=== PATIENT | female | born 1990 | race African-American/Black ===

== ENCOUNTER 2019-08-30 11:24 | Inpatient (IN) | payer OTHER ==
--- NOTE | 2019-08-30 11:58 | Event Note ---
ED Screening Note Date of service: 08/30/19 Time: 11:56 ED Screening Note: 29 y o female at 35 weeks gestation sent by [facility] for elevated BP with headache This initial assessment/diagnostic orders/clinical plan/treatment(s) is/are subject to change based on patients health status, clinical progression and re- assessment by fellow clinical providers in the ED. Further treatment and workup at subsequent clinical providers discretion. Patient/guardian urged not to elope from the ED as their condition may be serious if not clinically assessed and managed. Initial orders include: cbc,bmp,ua
[2019-08-30] MEDS ORDERED: hydrALAZINE 20 MG/1 ML INJ IV ONE (12:16)
[2019-08-30] MEDS ORDERED: MAGNESIUM SULFATE 40GM/1000ML 40 GM/1,000 ML BAG IV ONE ×2 (12:16→15:00)
--- NOTE | 2019-08-30 12:17 | Emergency Department Report ---
ED General Adult HPI - General Chief complaint: High BP Stated complaint: 35WKS /HBP Time Seen by Provider: 08/30/19 12:06 Source: patient, family, RN notes reviewed Mode of arrival: Ambulatory Limitations: Language Barrier - History of Present Illness Initial comments: The patient requested that her sister translate for her. The patient is a 29-year-old female, G1, P0, approximately 35 weeks gestation, sent by [facility] for evaluation of new onset hypertension. The patient complained of mild right-sided headache, present intermittently over the past day or so, not described as sudden or thunderclap in nature. The patient does not indicate that the patient is maximal in intensity. She does not indicate that it is the most intense headache of her life. No exacerbating or relieving factors that she is aware of. She has new onset lower extremity swelling, which she and her sister stated is new for her. There is no complete of chest pain, abdominal pain, shortness of breath. There are no urinary symptoms. As far as the patient and her sister no, no history of hypertension in the past. -: Gradual Location: head, left, right, lower extremity Consistency: other Improves with: other Worsens with: other - Related Data Allergies Allergy/AdvReac Type Severity Reaction Status Date / Time No Known Allergies Allergy Unverified 08/30/19 12:00 ED Review of Systems ROS: Stated complaint: 35WKS /HBP Other details as noted in HPI Constitutional: denies: fever Eyes: denies: eye discharge ENT: denies: epistaxis Respiratory: denies: wheezing Cardiovascular: denies: syncope Gastrointestinal: abdominal pain Genitourinary: denies: dysuria Musculoskeletal: other (new-onset bilateral lower extremity swelling) Skin: denies: lesions Neurological: headache Hematological/Lymphatic: denies: easy bleeding ED Past Medical Hx - Past Medical History Previous Medical History?: No - Surgical History Past Surgical History?: No - Social History Smoking Status: Never Smoker Substance Use Type: None ED Physical Exam - General Limitations: Language Barrier General appearance: alert, in no apparent distress - Head Head exam: Present: atraumatic, normocephalic - Eye Eye exam: Present: normal appearance, PERRL, EOMI, other (visual acuity intact to finger counting and color perception at a close distance). Absent: nystagmus - ENT ENT exam: Present: normal exam, normal orophraynx, mucous membranes moist, normal external ear exam - Neck Neck exam: Present: normal inspection, full ROM. Absent: tenderness, meningism us - Respiratory Respiratory exam: Present: normal lung sounds bilaterally. Absent: respiratory distress - Cardiovascular Cardiovascular Exam: Present: regular rate, normal rhythm, normal heart sounds. Absent: bradycardia, tachycardia, irregular rhythm, systolic murmur, diastolic murmur, rubs, gallop - GI/Abdominal GI/Abdominal exam: Present: soft, other (uterus is consistent with dates, with no significant tenderness). Absent: distended, tenderness, guarding, rebound, rigid, pulsatile mass - Extremities Exam Extremities exam: Present: normal inspection, full ROM, pedal edema, other (2+ pulses noted in the bilateral upper and lower extremities. There is no palpable cord. negative Homans sign. Muscular compartments are soft. The pelvis is stable.). Absent: calf tenderness - Back Exam Back exam: Present: normal inspection. Absent: tenderness, CVA tenderness (R), CVA tenderness (L), paraspinal tenderness, vertebral tenderness - Neurological Exam Neurological exam: Present: alert, normal gait, other (there is no facial droop. The tongue is midline. Extraocular movements are intact bilaterally. There is 5 out of 5 strength in the bilateral upper and lower extremities.) - Psychiatric Psychiatric exam: Present: normal affect, normal mood - Skin Skin exam: Present: warm, dry, intact, normal color. Absent: rash ED Course Vital Signs 08/30/19 08/30/19 08/30/19 11:33 12:00 12:46 Temperature 98.7 F Pulse Rate 94 H 90 Respiratory 18 20 Rate Blood Pressure 167/93 144/103 Blood Pressure 140/100 [Left] O2 Sat by Pulse 98 98 Oximetry 08/30/19 08/30/19 12:54 12:55 Temperature Pulse Rate 90 Respiratory 15 Rate Blood Pressure 144/103 Blood Pressure [Left] O2 Sat by Pulse Oximetry - Reevaluation(s) Reevaluation #1: 08/30/19 12:30 Differential diagnosis, including but not limited to: Preeclampsia, new onset hypertension, third trimester Assessment and plan: 29-year-old female presenting with hypertension, lower extremity edema, no visual complaints, mild headache. She is afebrile with reassuring vital signs with the exception of hypertension/elevated blood pressure. Objective edema noted on her bilateral lower extremities. Her neurologic examination is nonfocal with a GCS of 15. We have recommended IV hydralazine, magnesium sulfate infusion, and admission to labor and delivery for presumed preeclampsia. Discussed this with the patient and family who verbalized understanding and whom are amenable to this plan of care. CLINICAL SUPPORT NURSE on- call for the patient's primary group has been paged, we are waiting for them to call back. 08/30/19 12:33 Reevaluation #2: 08/30/19 12:38 Discussed with obstetrics hollow tile partition erector, Dr. Henriquez who accepts ED Medical Decision Making - Lab Data Result diagrams: 08/30/19 12:15 08/30/19 12:15 Vital Signs 08/30/19 08/30/19 11:33 12:00 Temperature 98.7 F Pulse Rate 94 H Respiratory 18 Rate Blood Pressure 167/93 Blood Pressure 140/100 [Left] O2 Sat by Pulse 98 Oximetry Laboratory Last Values WBC 9.1 K/mm3 (4.5-11.0) 08/30/19 12:15 RBC 4.47 M/mm3 (3.65-5.03) 08/30/19 12:15 Hgb 13.1 gm/dl (10.1-14.3) 08/30/19 12:15 Hct 38.6 % (30.3-42.9) 08/30/19 12:15 MCV 86 fl (79-97) 08/30/19 12:15 MCH 29 pg (28-32) 08/30/19 12:15 MCHC 34 % (30-34) 08/30/19 12:15 RDW 15.1 % (13.2-15.2) 08/30/19 12:15 Plt Count 164 K/mm3 (140-440) 08/30/19 12:15 Lymph % (Auto) 17.5 % (13.4-35.0) 08/30/19 12:15 [place] % (Auto) 8.1 % (0.0-7.3) H 08/30/19 12:15 Eos % (Auto) 1.3 % (0.0-4.3) 08/30/19 12:15 Baso % (Auto) 0.3 % (0.0-1.8) 08/30/19 12:15 Lymph # 1.6 K/mm3 (1.2-5.4) 08/30/19 12:15 [place] # 0.7 K/mm3 (0.0-0.8) 08/30/19 12:15 Eos # 0.1 K/mm3 (0.0-0.4) 08/30/19 12:15 Baso # 0.0 K/mm3 (0.0-0.1) 08/30/19 12:15 Seg Neutrophils % 72.8 % (40.0-70.0) H 08/30/19 12:15 Seg Neutrophils # 6.7 K/mm3 (1.8-7.7) 08/30/19 12:15 Vital Signs 08/30/19 08/30/19 08/30/19 11:33 12:00 12:46 Temperature 98.7 F Pulse Rate 94 H 90 Respiratory 18 20 Rate Blood Pressure 167/93 144/103 Blood Pressure 140/100 [Left] O2 Sat by Pulse 98 98 Oximetry 08/30/19 08/30/19 12:54 12:55 Temperature Pulse Rate 90 Respiratory 15 Rate Blood Pressure 144/103 Blood Pressure [Left] O2 Sat by Pulse Oximetry Lab Results 08/30/19 08/30/19 08/30/19 Range/Units 12:15 12:15 12:15 WBC 9.1 (4.5-11.0) K/mm3 RBC 4.47 (3.65-5.03) M/mm3 Hgb 13.1 (10.1-14.3) gm/dl Hct 38.6 (30.3-42.9) % MCV 86 (79-97) fl MCH 29 (28-32) pg MCHC 34 (30-34) % RDW 15.1 (13.2-15.2) % Plt Count 164 (140-440) K/mm3 Lymph % (Auto) 17.5 (13.4-35.0) % [place] % (Auto) 8.1 H (0.0-7.3) % Eos % (Auto) 1.3 (0.0-4.3) % Baso % (Auto) 0.3 (0.0-1.8) % Lymph # 1.6 (1.2-5.4) K/mm3 [place] # 0.7 (0.0-0.8) K/mm3 Eos # 0.1 (0.0-0.4) K/mm3 Baso # 0.0 (0.0-0.1) K/mm3 Seg Neutrophils % 72.8 H (40.0-70.0) % Seg Neutrophils # 6.7 (1.8-7.7) K/mm3 Sodium 136 L (137-145) mmol/L Potassium 3.9 (3.6-5.0) mmol/L Chloride 105.1 (98-107) mmol/L Carbon Dioxide 19 L (22-30) mmol/L Anion Gap 16 mmol/L BUN 7 (7-17) mg/dL Creatinine 0.3 L (0.7-1.2) mg/dL Estimated GFR > 60 ml/min BUN/Creatinine Ratio 23 % Glucose 73 (65-100) mg/dL Calcium 9.0 (8.4-10.2) mg/dL Magnesium 1.70 (1.7-2.3) mg/dL Total Bilirubin 0.30 (0.1-1.2) mg/dL AST 17 (5-40) units/L ALT 10 (7-56) units/L Alkaline Phosphatase 155 H (35-129) units/L Total Creatine Kinase 48 (30-135) units/L Total Protein 6.7 (6.3-8.2) g/dL Albumin 3.4 L (3.9-5) g/dL Albumin/Globulin Ratio 1.0 % Urine Color (Yellow) Urine Turbidity (Clear) Urine pH (5.0-7.0) Ur Specific [place] (1.003-1.030) Urine Protein (Negative) mg/dL Urine Glucose (UA) (Negative) mg/dL Urine Ketones (Negative) mg/dL Urine Blood (Negative) Urine Nitrite (Negative) Urine Bilirubin (Negative) Urine Urobilinogen (<2.0) mg/dL Ur Leukocyte Esterase (Negative) Urine WBC (Auto) (0.0-6.0) /HPF Urine RBC (Auto) (0.0-6.0) /HPF U Epithel Cells (Auto) (0-13.0) /HPF Urine Bacteria (Auto) (Negative) /HPF 08/30/19 Range/Units 12:24 WBC (4.5-11.0) K/mm3 RBC (3.65-5.03) M/mm3 Hgb (10.1-14.3) gm/dl Hct (30.3-42.9) % MCV (79-97) fl MCH (28-32) pg MCHC (30-34) % RDW (13.2-15.2) % Plt Count (140-440) K/mm3 Lymph % (Auto) (13.4-35.0) % [place] % (Auto) (0.0-7.3) % Eos % (Auto) (0.0-4.3) % Baso % (Auto) (0.0-1.8) % Lymph # (1.2-5.4) K/mm3 [place] # (0.0-0.8) K/mm3 Eos # (0.0-0.4) K/mm3 Baso # (0.0-0.1) K/mm3 Seg Neutrophils % (40.0-70.0) % Seg Neutrophils # (1.8-7.7) K/mm3 Sodium (137-145) mmol/L Potassium (3.6-5.0) mmol/L Chloride (98-107) mmol/L Carbon Dioxide (22-30) mmol/L Anion Gap mmol/L BUN (7-17) mg/dL Creatinine (0.7-1.2) mg/dL Estimated GFR ml/min BUN/Creatinine Ratio % Glucose (65-100) mg/dL Calcium (8.4-10.2) mg/dL Magnesium (1.7-2.3) mg/dL Total Bilirubin (0.1-1.2) mg/dL AST (5-40) units/L ALT (7-56) units/L Alkaline Phosphatase (35-129) units/L Total Creatine Kinase (30-135) units/L Total Protein (6.3-8.2) g/dL Albumin (3.9-5) g/dL Albumin/Globulin Ratio % Urine Color Yellow (Yellow) Urine Turbidity Slightly-cloudy (Clear) Urine pH 7.0 (5.0-7.0) Ur Specific [place] 1.008 (1.003-1.030) Urine Protein <15 mg/dl (Negative) mg/dL Urine Glucose (UA) Neg (Negative) mg/dL Urine Ketones Neg (Negative) mg/dL Urine Blood Neg (Negative) Urine Nitrite Neg (Negative) Urine Bilirubin Neg (Negative) Urine Urobilinogen < 2.0 (<2.0) mg/dL Ur Leukocyte Esterase Lg (Negative) Urine WBC (Auto) 11.0 H (0.0-6.0) /HPF Urine RBC (Auto) 2.0 (0.0-6.0) /HPF U Epithel Cells (Auto) 15.0 H (0-13.0) /HPF Urine Bacteria (Auto) 2+ (Negative) /HPF - EKG Data -: EKG Interpreted by Me EKG shows normal: sinus rhythm Rate: normal - EKG Data When compared to previous EKG there are: previous EKG unavailable 08/30/19 12:58 The EKG has motion artifact. There is a sinus rhythm, 98 bpm, QTC is within normal limits, there is motion artifact, there is no endorsement of chest pain, the EKG is abnormal, it is not consistent with ST elevation myocardial infarction. Critical Care Time: Yes Critical care time in (mins) excluding proc time.: 35 Critical care attestation.: If time is entered above; I have spent that time in minutes in the direct care of this critically ill patient, excluding procedure time. ED Disposition Clinical Impression: Lower extremity edema, Elevated blood pressure reading, Disposition: DC-[id number] OP ADMIT IP TO THIS HOSP Is pt being admited?: Yes Condition: Good
[2019-08-30 12:31] LABS: Basophils % (Auto) 0.3 % (0.0-1.8); Eosinophils # (Auto) 0.1 K/mm3 (0.0-0.4); Eosinophils % (Auto) 1.3 % (0.0-4.3); Hematocrit 38.6 % (30.3-42.9); Hemoglobin 13.1 gm/dl (10.1-14.3); Lymphocytes # (Auto) 1.6 K/mm3 (1.2-5.4); Lymphocytes % (Auto) 17.5 % (13.4-35.0); Mean Corpuscular HGB Conc 34 % (30-34); Mean Corpuscular Volume 86 fl (79-97); Monocytes # (Auto) 0.7 K/mm3 (0.0-0.8); Monocytes % (Auto) 8.1 % (0.0-7.3); Platelet Count 164 K/mm3 (140-440); Red Blood Count 4.47 M/mm3 (3.65-5.03); Red Cell Distribution Width 15.1 % (13.2-15.2)
[2019-08-30 12:48] LABS: Bacteria,Urine 2+ /HPF (Negative); Bilirubin,Urine NEG (Negative); Blood,Urine NEG (Negative); Color,Urine Yellow (Yellow); Protein,Urine <15 mg/dL mg/dL (Negative); Urobilinogen,Urine < 2.0 mg/dL (<2.0)
[2019-08-30 12:54] LABS: Alanine Aminotransferase 10 units/L (7-56); Albumin 3.4 g/dL (3.9-5); BUN/Creatinine Ratio 23; Blood Urea Nitrogen 7 mg/dL (7-17); Hemolysis Index 2
[2019-08-30] MEDS ORDERED: LACTATED RINGERS 1,000 ML ONE (14:07)
[2019-08-30] MEDS ORDERED: LIDOCAINE (2%) 20 MG/1 ML VIAL 20 ML MDV INFILTRATI ONE (14:11)
[2019-08-30] MEDS ORDERED: DINOPROSTONE 10 MG VAG SUPP VG ONE (14:11)
[2019-08-30] MEDS ORDERED: ePHEDrine SULFATE 50 MG/1 ML INJ IV PRN (14:11)
[2019-08-30] MEDS ORDERED: MINERAL OIL 30 ML ORAL LIQD PO PRN (14:11)
[2019-08-30] MEDS ORDERED: NALOXONE 0.4 MG/1 ML INJ IV PRN (14:11)
[2019-08-30] MEDS ORDERED: ONDANSETRON 4 MG/2 ML INJ IV PRN (14:11)
[2019-08-30] MEDS ORDERED: TERBUTALINE 1 MG/1 ML INJ IVP PRN (14:11)
[2019-08-30] MEDS ORDERED: TERBUTALINE 1 MG/1 ML INJ SUB-Q PRN (14:11)
--- NOTE | 2019-08-30 14:46 | History and Physical Report ---
History of Present Illness Date of examination: 08/30/19 Date of admission: 08/30/19 12:38 Chief complaint: Patient sent from office for elevated blood pressure and VEGA. Patient mistakenly went to the ER instead of the [facility]. PIH labs were drawn in the ER and Magnesium Sulfate was started. Then patient was transferred to L&D. History of present illness: Early Entry to care, course complicated by Abnormal Pap (LSIL/+HR HPV). Third trimester complicated by elevated Blood Pressures and PIH. 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 Family/Genetic History: diabetes (mother) Social history: no significant social history, - Obstetrical History Expected Date of Delivery: 09/16/19 Actual Gestation: 37 Week(s) 4 Day(s) : 1 Medications and Allergies Allergies Allergy/AdvReac Type Severity Reaction Status Date / Time No Known Allergies Allergy Unverified 08/30/19 12:00 Active Meds: Active Medications Butorphanol Tartrate (Stadol) 2 mg IV Q2H PRN PRN Reason: Pain , Severe (7-10) Ephedrine Sulfate (Ephedrine Sulfate) 10 mg IV Q2M PRN PRN Reason: Hypotension Oxytocin/Sodium Chloride (Pitocin/Ns 20 Unit/1000ml Drip) 20 units in 1,000 mls @ 125 mls/hr IV DIRECT LUISA Lactated Ringer's (Lactated Ringers) 1,000 mls @ 125 mls/hr IV DIRECT LUISA Magnesium Sulfate (Magnesium Sulfate 40gm/1000ml) 40 gm in 1,000 mls @ 50 mls/hr IV ONCE ONE Stop: 08/31/19 10:59 Mineral Oil (Mineral Oil) 30 ml PO QHS PRN PRN Reason: Constipation Naloxone HCl (Naloxone) 0.1 mg IV Q2MIN PRN PRN Reason: Res Rate </= 8 or 02 SAT < 92% Ondansetron HCl (Zofran) 4 mg IV Q8H PRN PRN Reason: Nausea And Vomiting Terbutaline Sulfate (Brethine) 0.25 mg SUB-Q ONCE PRN PRN Reason: Hyperstimulation/Hypertonicity Terbutaline Sulfate (Brethine) 0.25 mg IVP ONCE PRN PRN Reason: Hyperstimulation/Hypertonicity Review of Systems All systems: negative Constitutional: other (Headache) - Vital Signs Vital signs: Vital Signs Temp Pulse Resp BP Pulse Ox 98.7 F 94 H 18 167/93 98 08/30/19 11:33 08/30/19 11:33 08/30/19 11:33 08/30/19 11:33 08/30/19 11:33 Temp Pulse Resp BP Pulse Ox 98.5 F 104 H 16 133/87 98 08/30/19 14:00 08/30/19 14:28 08/30/19 14:00 08/30/19 14:28 08/30/19 13:00 - Physical Exam Breasts: Positive: normal Cardiovascular: Regular rate Lungs: Positive: Clear to auscultation, Normal air movement Abdomen: Positive: normal appearance, soft, normal bowel sounds Genitourinary (Female): Positive: normal external genitalia, normal perenium Vagina: Positive: normal moisture Uterus: Positive: enlarged - Obstetrical FHR: category 1 Uterine Contraction Monitor Mode: External Cervical Dilatation: 0 Cervical Effacement Percentage: 10 station: -4 Uterine Contraction Pattern: Irregular Uterine Tone Measurement Phase: Resting Uterine Contraction Intensity: Mild Results Result Diagrams: 08/30/19 12:15 08/30/19 12:15 Abnormal lab results 08/30/19 08/30/19 08/30/19 Range/Units 12:15 12:15 12:24 [place] % (Auto) 8.1 H (0.0-7.3) % Seg Neutrophils % 72.8 H (40.0-70.0) % Sodium 136 L (137-145) mmol/L Carbon Dioxide 19 L (22-30) mmol/L Creatinine 0.3 L (0.7-1.2) mg/dL Alkaline Phosphatase 155 H (35-129) units/L Albumin 3.4 L (3.9-5) g/dL Urine WBC (Auto) 11.0 H (0.0-6.0) /HPF U Epithel Cells (Auto) 15.0 H (0-13.0) /HPF All other labs normal. Assessment and Plan A: IUP @ 37 4/7 Weeks Category I Tracing Preeclampsia Headaches GBS Negative P: Admit to L&D per Routine Orders Continue MagSO4 @ 2g/hourly Magnesium Precautions Cervidil Induction [place] for HAs
[2019-08-30] MEDS ORDERED: OXYTOCIN 20 UNIT/1000ML DRIP 20 UNITS/1,000 ML BAG IV SCH (15:00)
[2019-08-30] MEDS ORDERED: ZOLPIDEM 5 MG TAB PO PRN (15:07)
[2019-08-30] MEDS: HYDROcodone/ACETAMINOPHEN 5-325 MG TAB PO PRN (18:54)
[2019-08-31] MEDS ORDERED: OXYTOCIN DRIP 30,000 MILLIUNITS/500 ML BAG IV ONE (08:21)
[2019-08-31] MEDS ORDERED: ACETAMINOPHEN 325 MG TAB ONE (09:52)
[2019-08-31] MEDS ORDERED: ACETAMINOPHEN 325 MG TAB PO PRN (09:55)
[2019-08-31] MEDS: BUTORPHANOL 2 MG/1 ML INJ IV PRN (11:03)
--- NOTE | 2019-08-31 11:05 | Progress Note ---
Assessment and Plan A: IUP @ 37 5/7 Weeks Category I Tracing Preeclampsia Headaches GBS Negative P: Continue MagSO4 @ 2g/hourly Magnesium Precautions Cook's Cervical Ripening Balloon Placed Low Dose Pitocin IV Pain Control Subjective - Subjective Date of service: 08/31/19 Interval history: Early Entry to care, course complicated by Abnormal Pap (LSIL/+HR HPV). Third trimester complicated by elevated Blood Pressures and PIH. Patient reports: contractions, other (slight right sided temporal VEGA) Objective - Vital Signs Vital Signs: Vital Signs - 12hr 08/30/19 08/30/19 08/30/19 23:05 23:10 23:15 Temperature Pulse Rate 101 H 91 H 94 H Blood Pressure O2 Sat by Pulse 96 98 98 Oximetry 08/30/19 08/30/19 08/30/19 23:20 23:25 23:30 Temperature Pulse Rate 96 H 91 H 92 H Blood Pressure O2 Sat by Pulse 98 98 98 Oximetry 08/30/19 08/30/19 08/30/19 23:35 23:40 23:45 Temperature Pulse Rate 100 H 91 H 89 Blood Pressure O2 Sat by Pulse 98 97 97 Oximetry 08/30/19 08/30/19 08/30/19 23:50 23:51 23:55 Temperature Pulse Rate 88 85 92 H Blood Pressure 129/79 O2 Sat by Pulse 97 97 Oximetry 08/31/19 08/31/19 08/31/19 00:00 00:05 00:10 Temperature Pulse Rate 89 88 89 Blood Pressure O2 Sat by Pulse 97 97 97 Oximetry 08/31/19 08/31/19 08/31/19 00:15 00:20 00:25 Temperature Pulse Rate 90 86 92 H Blood Pressure O2 Sat by Pulse 96 97 96 Oximetry 08/31/19 08/31/19 08/31/19 00:30 00:35 00:40 Temperature Pulse Rate 102 H 91 H 93 H Blood Pressure O2 Sat by Pulse 98 97 96 Oximetry 08/31/19 08/31/19 08/31/19 00:45 00:50 00:55 Temperature Pulse Rate 100 H 92 H 88 Blood Pressure 131/84 O2 Sat by Pulse 97 98 97 Oximetry 08/31/19 08/31/19 08/31/19 01:00 01:05 01:10 Temperature Pulse Rate 92 H 88 92 H Blood Pressure O2 Sat by Pulse 97 96 97 Oximetry 08/31/19 08/31/19 08/31/19 01:15 01:20 01:25 Temperature Pulse Rate 87 96 H 95 H Blood Pressure O2 Sat by Pulse 97 97 98 Oximetry 08/31/19 08/31/19 08/31/19 01:30 01:35 01:40 Temperature Pulse Rate 94 H 90 92 H Blood Pressure O2 Sat by Pulse 98 98 99 Oximetry 08/31/19 08/31/19 08/31/19 01:45 01:50 01:51 Temperature Pulse Rate 96 H 92 H 89 Blood Pressure 126/80 O2 Sat by Pulse 99 98 Oximetry 08/31/19 08/31/19 08/31/19 01:55 02:00 02:05 Temperature Pulse Rate 98 H 94 H 95 H Blood Pressure O2 Sat by Pulse 97 98 98 Oximetry 08/31/19 08/31/19 08/31/19 02:10 02:15 02:20 Temperature Pulse Rate 95 H 92 H 96 H Blood Pressure O2 Sat by Pulse 98 98 97 Oximetry 08/31/19 08/31/19 08/31/19 02:25 02:30 02:35 Temperature Pulse Rate 99 H 100 H 100 H Blood Pressure O2 Sat by Pulse 97 96 97 Oximetry 08/31/19 08/31/19 08/31/19 02:40 02:45 02:50 Temperature Pulse Rate 95 H 97 H 96 H Blood Pressure O2 Sat by Pulse 98 98 97 Oximetry 08/31/19 08/31/19 08/31/19 02:51 02:55 03:00 Temperature Pulse Rate 94 H 102 H 98 H Blood Pressure 130/82 O2 Sat by Pulse 97 97 Oximetry 08/31/19 08/31/19 08/31/19 03:05 03:10 03:15 Temperature Pulse Rate 108 H 94 H 90 Blood Pressure O2 Sat by Pulse 98 98 97 Oximetry 08/31/19 08/31/19 08/31/19 03:20 03:25 03:30 Temperature Pulse Rate 91 H 94 H 98 H Blood Pressure O2 Sat by Pulse 98 97 97 Oximetry 08/31/19 08/31/19 08/31/19 03:35 03:40 03:45 Temperature Pulse Rate 91 H 94 H 103 H Blood Pressure O2 Sat by Pulse 98 98 99 Oximetry 08/31/19 08/31/19 08/31/19 03:50 03:55 04:00 Temperature Pulse Rate 96 H 97 H 92 H Blood Pressure 132/85 O2 Sat by Pulse 99 98 98 Oximetry 08/31/19 08/31/19 08/31/19 04:05 04:10 04:15 Temperature Pulse Rate 93 H 91 H 97 H Blood Pressure O2 Sat by Pulse 99 98 99 Oximetry 08/31/19 08/31/19 08/31/19 04:20 04:25 04:30 Temperature Pulse Rate 92 H 92 H 94 H Blood Pressure O2 Sat by Pulse 98 98 97 Oximetry 08/31/19 08/31/19 08/31/19 04:35 04:40 04:45 Temperature Pulse Rate 95 H 93 H 89 Blood Pressure O2 Sat by Pulse 97 98 98 Oximetry 08/31/19 08/31/19 08/31/19 04:50 04:55 05:00 Temperature Pulse Rate 97 H 95 H 97 H Blood Pressure 121/81 O2 Sat by Pulse 98 97 97 Oximetry 08/31/19 08/31/19 08/31/19 05:05 05:10 05:15 Temperature Pulse Rate 94 H 103 H 95 H Blood Pressure O2 Sat by Pulse 97 97 97 Oximetry 08/31/19 08/31/19 08/31/19 05:20 05:25 05:30 Temperature Pulse Rate 101 H 93 H 98 H Blood Pressure O2 Sat by Pulse 98 98 97 Oximetry 08/31/19 08/31/19 08/31/19 05:35 05:40 05:45 Temperature Pulse Rate 99 H 107 H 93 H Blood Pressure O2 Sat by Pulse 98 98 98 Oximetry 08/31/19 08/31/19 08/31/19 05:50 05:54 05:55 Temperature Pulse Rate 93 H 100 H 94 H Blood Pressure 136/81 O2 Sat by Pulse 100 98 Oximetry 08/31/19 08/31/19 08/31/19 06:00 06:05 06:10 Temperature Pulse Rate 98 H 96 H 99 H Blood Pressure O2 Sat by Pulse 98 98 98 Oximetry 08/31/19 08/31/19 08/31/19 06:15 06:20 06:25 Temperature Pulse Rate 99 H 101 H 104 H Blood Pressure O2 Sat by Pulse 98 98 97 Oximetry 08/31/19 08/31/19 08/31/19 06:30 06:35 06:40 Temperature Pulse Rate 101 H 105 H 92 H Blood Pressure O2 Sat by Pulse 98 97 97 Oximetry 08/31/19 08/31/19 08/31/19 06:45 06:50 06:55 Temperature Pulse Rate 95 H 96 H 90 Blood Pressure 133/81 O2 Sat by Pulse 98 98 98 Oximetry 08/31/19 08/31/19 08/31/19 07:00 07:05 07:10 Temperature Pulse Rate 98 H 105 H 95 H Blood Pressure O2 Sat by Pulse 98 99 98 Oximetry 08/31/19 08/31/19 08/31/19 07:15 07:19 07:20 Temperature Pulse Rate 104 H 106 H 95 H Blood Pressure 140/91 O2 Sat by Pulse 97 98 Oximetry 08/31/19 08/31/19 08/31/19 07:25 07:30 07:35 Temperature Pulse Rate 96 H 92 H 88 Blood Pressure O2 Sat by Pulse 98 98 98 Oximetry 08/31/19 08/31/19 08/31/19 07:40 07:45 07:50 Temperature Pulse Rate 88 95 H 91 H Blood Pressure 136/81 O2 Sat by Pulse 99 99 98 Oximetry 08/31/19 08/31/19 08/31/19 07:55 08:00 08:05 Temperature Pulse Rate 96 H 104 H 94 H Blood Pressure O2 Sat by Pulse 99 99 98 Oximetry 08/31/19 08/31/19 08/31/19 08:10 08:15 08:20 Temperature Pulse Rate 98 H 98 H 97 H Blood Pressure O2 Sat by Pulse 98 97 98 Oximetry 08/31/19 08/31/19 08/31/19 08:25 08:30 08:34 Temperature 98.3 F Pulse Rate 105 H 99 H 100 H Blood Pressure 134/86 O2 Sat by Pulse 98 99 Oximetry 08/31/19 08/31/19 08/31/19 08:35 08:40 08:45 Temperature Pulse Rate 104 H 93 H 98 H Blood Pressure O2 Sat by Pulse 99 98 98 Oximetry 08/31/19 08/31/19 08/31/19 08:50 08:55 09:00 Temperature Pulse Rate 106 H 96 H 98 H Blood Pressure O2 Sat by Pulse 98 98 98 Oximetry 08/31/19 08/31/19 08/31/19 09:04 09:05 09:10 Temperature Pulse Rate 96 H 97 H 100 H Blood Pressure 135/86 O2 Sat by Pulse 98 98 Oximetry 08/31/19 08/31/19 08/31/19 09:15 09:20 09:25 Temperature Pulse Rate 99 H 98 H 105 H Blood Pressure O2 Sat by Pulse 98 98 98 Oximetry 08/31/19 08/31/19 08/31/19 09:30 09:34 09:35 Temperature Pulse Rate 93 H 87 90 Blood Pressure 134/80 O2 Sat by Pulse 98 98 Oximetry 08/31/19 08/31/19 08/31/19 09:40 09:45 09:50 Temperature Pulse Rate 94 H 92 H 94 H Blood Pressure O2 Sat by Pulse 98 98 98 Oximetry 08/31/19 08/31/19 08/31/19 09:55 10:00 10:05 Temperature Pulse Rate 95 H 94 H 92 H Blood Pressure 142/81 O2 Sat by Pulse 98 98 98 Oximetry 08/31/19 08/31/19 08/31/19 10:10 10:15 10:20 Temperature Pulse Rate 91 H 93 H 86 Blood Pressure O2 Sat by Pulse 98 98 98 Oximetry 08/31/19 08/31/19 08/31/19 10:25 10:30 10:34 Temperature Pulse Rate 93 H 88 83 Blood Pressure 128/76 O2 Sat by Pulse 98 99 Oximetry 08/31/19 08/31/19 08/31/19 10:35 10:40 10:45 Temperature Pulse Rate 94 H 90 94 H Blood Pressure O2 Sat by Pulse 98 98 98 Oximetry 08/31/19 08/31/19 08/31/19 10:50 10:55 11:00 Temperature Pulse Rate 103 H 104 H 90 Blood Pressure O2 Sat by Pulse 99 99 98 Oximetry - Exam Breasts: normal Cardiovascular: Regular rate Lungs: Clear to auscultation, Normal air movement Abdomen: Present: normal appearance, soft, normal bowel sounds Uterus: Present: normal, firm, fundal height above umbilicus FHR: category 1 Uterine Contraction Monitor Mode: External Cervical Dilatation: 1 (Vtx; Intact) Cervical Effacement Percentage: 40 station: -3 Uterine Contraction Pattern: Regular Uterine Tone Measurement Phase: Resting Uterine Contraction Intensity: Mild Extremities: normal - Labs Labs: Abnormal Labs 08/30/19 08/30/19 08/30/19 12:15 12:15 12:24 [place] % (Auto) 8.1 H Seg Neutrophils % 72.8 H Sodium 136 L Carbon Dioxide 19 L Creatinine 0.3 L Magnesium Alkaline Phosphatase 155 H Albumin 3.4 L Urine WBC (Auto) 11.0 H U Epithel Cells (Auto) 15.0 H 08/30/19 08/31/19 21:50 05:49 [place] % (Auto) Seg Neutrophils % Sodium Carbon Dioxide Creatinine Magnesium 4.90 H 5.60 H Alkaline Phosphatase Albumin Urine WBC (Auto) U Epithel Cells (Auto) Laboratory Results - last 24 hr 08/30/19 08/30/19 08/30/19 12:15 12:15 12:15 WBC 9.1 RBC 4.47 Hgb 13.1 Hct 38.6 MCV 86 MCH 29 MCHC 34 RDW 15.1 Plt Count 164 Lymph % (Auto) 17.5 [place]one % (Auto) 8.1 H Eos % (Auto) 1.3 Baso % (Auto) 0.3 Lymph # 1.6 Mccone # 0.7 Eos # 0.1 Baso # 0.0 Seg Neutrophils % 72.8 H Seg Neutrophils # 6.7 Sodium 136 L Potassium 3.9 Chloride 105.1 Carbon Dioxide 19 L Anion Gap 16 BUN 7 Creatinine 0.3 L Estimated GFR > 60 BUN/Creatinine Ratio 23 Glucose 73 Calcium 9.0 Magnesium 1.70 Total Bilirubin 0.30 AST 17 ALT 10 Alkaline Phosphatase 155 H Total Creatine Kinase 48 Total Protein 6.7 Albumin 3.4 L Albumin/Globulin Ratio 1.0 Urine Color Urine Turbidity Urine pH Ur Specific [place] Urine Protein Urine Glucose (UA) Urine Ketones Urine Blood Urine Nitrite Urine Bilirubin Urine Urobilinogen Ur Leukocyte Esterase Urine WBC (Auto) Urine RBC (Auto) U Epithel Cells (Auto) Urine Bacteria (Auto) Blood Type Antibody Screen 08/30/19 08/30/19 08/30/19 12:24 15:30 21:50 WBC RBC Hgb Hct MCV MCH MCHC RDW Plt Count Lymph % (Auto) Mccone % (Auto) Eos % (Auto) Baso % (Auto) Lymph # M[place]one # Eos # Baso # Seg Neutrophils % Seg Neutrophils # Sodium Potassium Chloride Carbon Dioxide Anion Gap BUN Creatinine Estimated GFR BUN/Creatinine Ratio Glucose Calcium Magnesium 4.90 H Total Bilirubin AST ALT Alkaline Phosphatase Total Creatine Kinase Total Protein Albumin Albumin/Globulin Ratio Urine Color Yellow Urine Turbidity Slightly-cloudy Urine pH 7.0 Ur Specific [place] 1.008 Urine Protein <15 mg/dl Urine Glucose (UA) Neg Urine Ketones Neg Urine Blood Neg Urine Nitrite Neg Urine Bilirubin Neg Urine Urobilinogen < 2.0 Ur Leukocyte Esterase Lg Urine WBC (Auto) 11.0 H Urine RBC (Auto) 2.0 U Epithel Cells (Auto) 15.0 H Urine Bacteria (Auto) 2+ Blood Type O POSITIVE Antibody Screen Negative 08/31/19 05:49 WBC RBC Hgb Hct MCV MCH MCHC RDW Plt Count Lymph % (Auto) M[place]one % (Auto) Eos % (Auto) Baso % (Auto) Lymph # Mcc[place] # Eos # Baso # Seg Neutrophils % Seg Neutrophils # Sodium Potassium Chloride Carbon Dioxide Anion Gap BUN Creatinine Estimated GFR BUN/Creatinine Ratio Glucose Calcium Magnesium 5.60 H Total Bilirubin AST ALT Alkaline Phosphatase Total Creatine Kinase Total Protein Albumin Albumin/Globulin Ratio Urine Color Urine Turbidity Urine pH Ur Specific [place] Urine Protein Urine Glucose (UA) Urine Ketones Urine Blood Urine Nitrite Urine Bilirubin Urine Urobilinogen Ur Leukocyte Esterase Urine WBC (Auto) Urine RBC (Auto) U Epithel Cells (Auto) Urine Bacteria (Auto) Blood Type Antibody Screen
[2019-08-31] MEDS: OXYTOCIN DRIP 30 UNITS/500 ML BAG IV SCH ×2 (11:35→12:51)
--- NOTE | 2019-08-31 20:29 | Progress Note ---
Assessment and Plan A: Term IUP Preeclampsia: MgSo4 2gram/hr (last Mag level 6.10) Headache Category 1 tracing Cooks catheter removed AROM 17:47 Lg clear fluid Pitocin 2MU P: Routine labor orders Continue MgS04 2 grams hr MgS04 precautions Pitocin Augmentation May have IV pain med/epidural PRN Anticipate Subjective - Subjective Date of service: 08/31/19 Principal diagnosis: IOL at term, Preeclampsia Interval history: See H&P Patient reports: new complaints (blurry vision), movement normal, contractions, other ( right sided temporal VEGA. Rates pain 5/10 pain scale) Objective - Vital Signs Vital Signs: Vital Signs - 12hr 08/31/19 08/31/19 08/31/19 08:30 08:34 08:35 Temperature 98.3 F Pulse Rate 99 H 100 H 104 H Respiratory Rate Blood Pressure 134/86 O2 Sat by Pulse 99 99 Oximetry 08/31/19 08/31/19 08/31/19 08:40 08:45 08:50 Temperature Pulse Rate 93 H 98 H 106 H Respiratory Rate Blood Pressure O2 Sat by Pulse 98 98 98 Oximetry 08/31/19 08/31/19 08/31/19 08:55 09:00 09:04 Temperature Pulse Rate 96 H 98 H 96 H Respiratory Rate Blood Pressure 135/86 O2 Sat by Pulse 98 98 Oximetry 08/31/19 08/31/19 08/31/19 09:05 09:10 09:15 Temperature Pulse Rate 97 H 100 H 99 H Respiratory Rate Blood Pressure O2 Sat by Pulse 98 98 98 Oximetry 08/31/19 08/31/19 08/31/19 09:20 09:25 09:30 Temperature Pulse Rate 98 H 105 H 93 H Respiratory Rate Blood Pressure O2 Sat by Pulse 98 98 98 Oximetry 08/31/19 08/31/19 08/31/19 09:34 09:35 09:40 Temperature Pulse Rate 87 90 94 H Respiratory Rate Blood Pressure 134/80 O2 Sat by Pulse 98 98 Oximetry 08/31/19 08/31/19 08/31/19 09:45 09:50 09:55 Temperature Pulse Rate 92 H 94 H 95 H Respiratory Rate Blood Pressure O2 Sat by Pulse 98 98 98 Oximetry 08/31/19 08/31/19 08/31/19 10:00 10:05 10:10 Temperature Pulse Rate 94 H 92 H 91 H Respiratory Rate Blood Pressure 142/81 O2 Sat by Pulse 98 98 98 Oximetry 08/31/19 08/31/19 08/31/19 10:15 10:20 10:25 Temperature Pulse Rate 93 H 86 93 H Respiratory Rate Blood Pressure O2 Sat by Pulse 98 98 98 Oximetry 08/31/19 08/31/19 08/31/19 10:30 10:34 10:35 Temperature Pulse Rate 88 83 94 H Respiratory Rate Blood Pressure 128/76 O2 Sat by Pulse 99 98 Oximetry 08/31/19 08/31/19 08/31/19 10:40 10:45 10:50 Temperature Pulse Rate 90 94 H 103 H Respiratory Rate Blood Pressure O2 Sat by Pulse 98 98 99 Oximetry 08/31/19 08/31/19 08/31/19 10:55 11:00 11:05 Temperature Pulse Rate 104 H 90 89 Respiratory Rate Blood Pressure 141/85 O2 Sat by Pulse 99 98 99 Oximetry 08/31/19 08/31/19 08/31/19 11:10 11:11 11:15 Temperature Pulse Rate 86 90 88 Respiratory Rate Blood Pressure O2 Sat by Pulse 96 94 96 Oximetry 08/31/19 08/31/19 08/31/19 11:20 11:25 11:30 Temperature Pulse Rate 87 90 87 Respiratory Rate Blood Pressure O2 Sat by Pulse 96 95 96 Oximetry 08/31/19 08/31/19 08/31/19 11:32 11:35 11:40 Temperature Pulse Rate 93 H 87 86 Respiratory Rate Blood Pressure 120/68 O2 Sat by Pulse 94 96 96 Oximetry 08/31/19 08/31/19 08/31/19 11:45 11:50 11:55 Temperature Pulse Rate 88 92 H 89 Respiratory Rate Blood Pressure O2 Sat by Pulse 99 99 99 Oximetry 08/31/19 08/31/19 08/31/19 12:00 12:04 12:05 Temperature Pulse Rate 95 H 88 86 Respiratory Rate Blood Pressure 129/78 O2 Sat by Pulse 99 100 Oximetry 08/31/19 08/31/19 08/31/19 12:10 12:15 12:20 Temperature Pulse Rate 96 H 96 H 93 H Respiratory Rate Blood Pressure O2 Sat by Pulse 100 99 100 Oximetry 08/31/19 08/31/19 08/31/19 12:25 12:30 12:35 Temperature Pulse Rate 89 89 89 Respiratory Rate Blood Pressure 131/74 O2 Sat by Pulse 100 100 100 Oximetry 08/31/19 08/31/19 08/31/19 12:40 12:45 12:50 Temperature Pulse Rate 95 H 90 89 Respiratory Rate Blood Pressure O2 Sat by Pulse 100 100 100 Oximetry 08/31/19 08/31/19 08/31/19 12:55 13:00 13:04 Temperature Pulse Rate 92 H 85 85 Respiratory Rate Blood Pressure 116/61 O2 Sat by Pulse 100 100 Oximetry 08/31/19 08/31/19 08/31/19 13:05 13:10 13:15 Temperature Pulse Rate 86 91 H 88 Respiratory Rate Blood Pressure O2 Sat by Pulse 100 100 100 Oximetry 08/31/19 08/31/19 08/31/19 13:20 13:25 13:30 Temperature Pulse Rate 87 97 H 95 H Respiratory Rate Blood Pressure O2 Sat by Pulse 100 100 100 Oximetry 08/31/19 08/31/19 08/31/19 13:34 13:35 13:40 Temperature 98.5 F Pulse Rate 87 89 96 H Respiratory Rate Blood Pressure 129/75 O2 Sat by Pulse 100 100 Oximetry 08/31/19 08/31/19 08/31/19 13:45 13:50 13:55 Temperature Pulse Rate 94 H 90 100 H Respiratory Rate Blood Pressure O2 Sat by Pulse 100 100 99 Oximetry 08/31/19 08/31/19 08/31/19 14:00 14:04 14:05 Temperature Pulse Rate 87 88 89 Respiratory Rate Blood Pressure 110/66 O2 Sat by Pulse 100 100 Oximetry 08/31/19 08/31/19 08/31/19 14:10 14:15 14:20 Temperature Pulse Rate 89 84 87 Respiratory Rate Blood Pressure O2 Sat by Pulse 100 100 100 Oximetry 08/31/19 08/31/19 08/31/19 14:25 14:30 14:34 Temperature Pulse Rate 82 90 85 Respiratory Rate Blood Pressure 129/78 O2 Sat by Pulse 100 99 Oximetry 08/31/19 08/31/19 08/31/19 14:35 14:40 14:45 Temperature Pulse Rate 93 H 85 85 Respiratory Rate Blood Pressure O2 Sat by Pulse 99 99 99 Oximetry 08/31/19 08/31/19 08/31/19 14:50 14:55 15:00 Temperature Pulse Rate 98 H 91 H 90 Respiratory Rate Blood Pressure O2 Sat by Pulse 99 99 99 Oximetry 08/31/19 08/31/19 08/31/19 15:04 15:05 15:10 Temperature Pulse Rate 84 85 87 Respiratory Rate Blood Pressure 124/64 O2 Sat by Pulse 99 100 Oximetry 08/31/19 08/31/19 08/31/19 15:15 15:20 15:25 Temperature Pulse Rate 87 89 86 Respiratory Rate Blood Pressure O2 Sat by Pulse 99 100 99 Oximetry 08/31/19 08/31/19 08/31/19 15:30 15:34 15:35 Temperature Pulse Rate 84 83 96 H Respiratory Rate Blood Pressure 125/70 O2 Sat by Pulse 98 98 Oximetry 08/31/19 08/31/19 08/31/19 15:40 15:45 15:50 Temperature Pulse Rate 93 H 86 86 Respiratory Rate Blood Pressure O2 Sat by Pulse 98 100 100 Oximetry 08/31/19 08/31/19 08/31/19 15:55 16:00 16:05 Temperature Pulse Rate 91 H 90 90 Respiratory Rate Blood Pressure O2 Sat by Pulse 98 98 98 Oximetry 08/31/19 08/31/19 08/31/19 16:06 16:10 16:15 Temperature Pulse Rate 98 H 93 H 96 H Respiratory Rate Blood Pressure 127/81 O2 Sat by Pulse 99 99 Oximetry 08/31/19 08/31/19 08/31/19 16:20 16:25 16:30 Temperature Pulse Rate 97 H 91 H 96 H Respiratory Rate Blood Pressure O2 Sat by Pulse 100 100 100 Oximetry 08/31/19 08/31/19 08/31/19 16:34 16:35 16:40 Temperature Pulse Rate 93 H 92 H 92 H Respiratory Rate Blood Pressure 131/84 O2 Sat by Pulse 99 99 Oximetry 08/31/19 08/31/19 08/31/19 16:45 16:50 16:55 Temperature Pulse Rate 94 H 97 H 99 H Respiratory Rate Blood Pressure O2 Sat by Pulse 99 100 99 Oximetry 08/31/19 08/31/19 08/31/19 17:00 17:05 17:10 Temperature Pulse Rate 95 H 90 88 Respiratory Rate Blood Pressure 125/78 O2 Sat by Pulse 99 100 100 Oximetry 08/31/19 08/31/19 08/31/19 17:15 17:20 17:25 Temperature Pulse Rate 95 H 92 H 105 H Respiratory Rate Blood Pressure O2 Sat by Pulse 99 99 99 Oximetry 08/31/19 08/31/19 08/31/19 17:30 17:35 17:39 Temperature 97.8 F Pulse Rate 100 H 100 H Respiratory 18 Rate Blood Pressure 122/82 O2 Sat by Pulse 99 99 Oximetry 08/31/19 08/31/19 08/31/19 17:40 17:45 17:50 Temperature Pulse Rate 97 H 94 H 88 Respiratory Rate Blood Pressure O2 Sat by Pulse 100 99 99 Oximetry 08/31/19 08/31/19 08/31/19 17:55 18:00 18:05 Temperature Pulse Rate 87 89 91 H Respiratory Rate Blood Pressure 127/67 O2 Sat by Pulse 99 99 99 Oximetry 08/31/19 08/31/19 08/31/19 18:10 18:15 18:20 Temperature Pulse Rate 89 94 H 90 Respiratory Rate Blood Pressure O2 Sat by Pulse 99 100 100 Oximetry 08/31/19 08/31/19 08/31/19 18:25 18:30 18:35 Temperature Pulse Rate 103 H 89 91 H Respiratory Rate Blood Pressure 134/81 O2 Sat by Pulse 100 99 99 Oximetry 08/31/19 08/31/19 08/31/19 18:40 18:45 18:50 Temperature Pulse Rate 89 89 95 H Respiratory Rate Blood Pressure O2 Sat by Pulse 99 100 100 Oximetry 08/31/19 08/31/19 08/31/19 18:55 19:00 19:05 Temperature Pulse Rate 97 H 100 H 98 H Respiratory Rate Blood Pressure 129/77 O2 Sat by Pulse 99 100 99 Oximetry 08/31/19 08/31/19 08/31/19 19:10 19:15 19:20 Temperature Pulse Rate 98 H 96 H 95 H Respiratory Rate Blood Pressure O2 Sat by Pulse 99 100 99 Oximetry 08/31/19 08/31/19 08/31/19 19:25 19:30 19:34 Temperature Pulse Rate 101 H 94 H 98 H Respiratory Rate Blood Pressure 125/77 O2 Sat by Pulse 99 99 Oximetry 08/31/19 08/31/19 08/31/19 19:35 19:40 19:45 Temperature Pulse Rate 95 H 99 H 51 L Respiratory Rate Blood Pressure O2 Sat by Pulse 100 100 92 Oximetry 08/31/19 08/31/19 08/31/19 19:46 19:51 19:56 Temperature Pulse Rate 101 H 92 H 95 H Respiratory Rate Blood Pressure O2 Sat by Pulse 98 99 100 Oximetry 08/31/19 08/31/19 08/31/19 20:01 20:04 20:06 Temperature Pulse Rate 92 H 88 92 H Respiratory Rate Blood Pressure 126/77 O2 Sat by Pulse 100 99 Oximetry 08/31/19 08/31/19 08/31/19 20:11 20:16 20:21 Temperature Pulse Rate 90 89 92 H Respiratory Rate Blood Pressure O2 Sat by Pulse 99 99 99 Oximetry - Exam Breasts: normal Cardiovascular: Regular rate, Normal S1, Normal S2, No murmurs Lungs: Clear to auscultation, Normal air movement Abdomen: Present: normal appearance, soft, normal bowel sounds. Absent: distention Vulva: both: normal (Cooks catheter out with gentle traction. Bloody show noted ) Uterus: Present: other (gravid) FHR: category 1 Uterine Contraction Monitor Mode: External Cervical Dilatation: 6 (AROM 19:47 lg amt clear fluid) Cervical Effacement Percentage: 70 station: -2 Uterine Contraction Frequency (min): 5 Uterine Contraction Pattern: Regular Uterine Tone Measurement Phase: Resting Uterine Contraction Intensity: Moderate Extremities: normal Deep Tendon Reflex Grade: Normal +2 - Labs Labs: Abnormal Labs 08/30/19 08/30/19 08/30/19 12:15 12:15 12:24 [place] % (Auto) 8.1 H Seg Neutrophils % 72.8 H Sodium 136 L Carbon Dioxide 19 L Creatinine 0.3 L Magnesium Alkaline Phosphatase 155 H Albumin 3.4 L Urine WBC (Auto) 11.0 H U Epithel Cells (Auto) 15.0 H 08/30/19 08/31/19 08/31/19 21:50 05:49 13:07 [place] % (Auto) Seg Neutrophils % Sodium Carbon Dioxide Creatinine Magnesium 4.90 H 5.60 H 6.10 H Alkaline Phosphatase Albumin Urine WBC (Auto) U Epithel Cells (Auto) Laboratory Results - last 24 hr 08/30/19 08/31/19 08/31/19 21:50 05:49 13:07 Magnesium 4.90 H 5.60 H 6.10 H
[2019-09-01] MEDS: BUTORPHANOL 2 MG/1 ML INJ IV PRN (00:13)
[2019-09-01] MEDS ORDERED: DEXMEDETOMIDINE 200 MCG/2 ML VIAL IV ONE ×2 (03:03→14:31)
[2019-09-01] MEDS ORDERED: NALOXONE 2 MG/2 ML INJ IV PRN (03:35)
[2019-09-01] MEDS ORDERED: ePHEDrine SULFATE 50 MG/1 ML INJ IV PRN (03:35)
--- NOTE | 2019-09-01 03:49 | Anesthesia Consultation ---
Anesthesia Consult and Med Hx Date of service: 09/01/19 - Airway Anesthetic Teeth Evaluation: Good ROM Head & Neck: Adequate Mental/Hyoid Distance: Adequate Mallampati Class: Class II Intubation Access Assessment: Probably Good - Pulmonary Exam CTA: Yes - Cardiac Exam Cardiac Exam: RRR - Pre-Operative Health Status ASA Pre-Surgery Classification: ASA3 Proposed Anesthetic Plan: Epidural - Pulmonary Hx Smoking: No Hx Asthma: No Hx Respiratory Symptoms: No SOB: No COPD: No Home Oxygen Therapy: No Hx Pneumonia: No Hx Sleep Apnea: No - Cardiovascular System Hx Hypertension: Yes (x2 wks) Hx Coronary Artery Disease: No Hx Heart Attack/AMI: No Hx Angina: No Hx Percutaneous Transluminal Coronary Angioplasty (PTCA): No Hx Cardia Arrhythmia: No Hx Pacemaker: No Hx Internal Defibrillator: No Hx Valvular Heart Disease: No Hx Heart Murmur: No Hx Peripheral Vascular Disease: No - Central Nervous System Hx Neuromuscular Disorder: No Hx Seizures: No CVA: No Hx Back Pain: No Hx Psychiatric Problems: No - Endocrine Hx Renal Disease: No Hx End Stage Renal Disease: No Hx Cirrhosis: No Hx Liver Disease: No Hx Insulin Dependent Diabetes: No Hx Non-Insulin Dependent Diabetes: No Hx Thyroid Disease: No Hx Hypothyroidism: No Hx Hyperthyroidism: No - Hematic Hx Anemia: No Hx Sickle Cell Disease: No - Other Systems Hx Alcohol Use: No Hx Substance Use: No Hx Cancer: No Hx Obesity: No
--- NOTE | 2019-09-01 03:50 | Anesthesia Day of Surgery ---
Anesthesia Day of Surgery - Day of Surgery Patient Examined: Yes Patient H&P Reviewed: Yes Patient is NPO: Yes Beta Blockers: No Cardiac Clearance: No Pulmonary Clearance: No Sarwat's Test: N/A
[2019-09-01] MEDS ORDERED: fentaNYL-BUPIV 2 MCG/ML-0.125% 200 MCG/100 ML BAG EPIDURAL SCH (04:00)
[2019-09-01] MEDS: LACTATED RINGERS 1,000 ML IV SCH ×3 (04:01→20:28)
[2019-09-01] MEDS: MAGNESIUM SULFATE 40GM/1000ML 40 GM/1,000 ML BAG IV SCH ×3 (04:01→20:00)
--- NOTE | 2019-09-01 09:17 | Progress Note ---
Assessment and Plan A: Term IUP Preeclampsia: MgSo4 2gram/hr (last Mag level 6.20), VSS Category 1 tracing Pitocin 14MU Comfortable with epidural ; Complains of pruritus P: Routine labor orders Continue MgS04 2 grams hr MgS04 precautions Continue Pitocin Augmentation Benadryl 25mg IV Ampicillin 2 grams IVP (AROM 08/31/19 19:47) Positioned far R lateral Anticipate Subjective - Subjective Date of service: 09/01/19 (8:20) Principal diagnosis: IOL at term, Preeclampsia; MgS04 Interval history: See H&P Patient reports: movement normal, other (Comfortable with epidural) Objective - Vital Signs Vital Signs: Vital Signs - 12hr 08/31/19 08/31/19 08/31/19 21:16 21:21 21:26 Temperature Pulse Rate 94 H 94 H 99 H Respiratory Rate Blood Pressure Blood Pressure [Right] O2 Sat by Pulse 99 100 100 Oximetry 08/31/19 08/31/19 08/31/19 21:31 21:35 21:36 Temperature Pulse Rate 94 H 98 H 102 H Respiratory Rate Blood Pressure 127/64 Blood Pressure [Right] O2 Sat by Pulse 100 99 Oximetry 08/31/19 08/31/19 08/31/19 21:41 21:46 21:51 Temperature Pulse Rate 103 H 94 H 84 Respiratory Rate Blood Pressure Blood Pressure [Right] O2 Sat by Pulse 100 100 100 Oximetry 08/31/19 08/31/19 08/31/19 21:56 22:01 22:04 Temperature Pulse Rate 91 H 97 H 88 Respiratory Rate Blood Pressure 128/69 Blood Pressure [Right] O2 Sat by Pulse 100 100 Oximetry 08/31/19 08/31/19 08/31/19 22:06 22:11 22:16 Temperature Pulse Rate 96 H 89 96 H Respiratory Rate Blood Pressure Blood Pressure [Right] O2 Sat by Pulse 100 100 99 Oximetry 08/31/19 08/31/19 08/31/19 22:21 22:26 22:31 Temperature Pulse Rate 100 H 108 H 93 H Respiratory Rate Blood Pressure Blood Pressure [Right] O2 Sat by Pulse 100 100 100 Oximetry 08/31/19 08/31/19 08/31/19 22:35 22:36 22:41 Temperature Pulse Rate 92 H 82 90 Respiratory Rate Blood Pressure 131/83 Blood Pressure [Right] O2 Sat by Pulse 100 100 Oximetry 08/31/19 08/31/19 08/31/19 22:46 22:51 22:56 Temperature Pulse Rate 95 H 101 H 93 H Respiratory Rate Blood Pressure Blood Pressure [Right] O2 Sat by Pulse 100 100 100 Oximetry 08/31/19 08/31/19 08/31/19 23:01 23:04 23:06 Temperature Pulse Rate 94 H 96 H 91 H Respiratory Rate Blood Pressure 131/72 Blood Pressure [Right] O2 Sat by Pulse 100 99 Oximetry 08/31/19 08/31/19 08/31/19 23:11 23:16 23:21 Temperature Pulse Rate 102 H 96 H 96 H Respiratory Rate Blood Pressure Blood Pressure [Right] O2 Sat by Pulse 99 99 99 Oximetry 08/31/19 08/31/19 08/31/19 23:26 23:31 23:34 Temperature Pulse Rate 100 H 100 H 100 H Respiratory Rate Blood Pressure 129/79 Blood Pressure [Right] O2 Sat by Pulse 99 99 Oximetry 08/31/19 08/31/19 08/31/19 23:36 23:41 23:46 Temperature Pulse Rate 96 H 99 H 103 H Respiratory Rate Blood Pressure Blood Pressure [Right] O2 Sat by Pulse 98 99 99 Oximetry 08/31/19 08/31/19 09/01/19 23:51 23:56 00:01 Temperature Pulse Rate 100 H 99 H 101 H Respiratory Rate Blood Pressure Blood Pressure [Right] O2 Sat by Pulse 99 99 99 Oximetry 09/01/19 09/01/19 09/01/19 00:04 00:06 00:11 Temperature Pulse Rate 101 H 103 H 95 H Respiratory Rate Blood Pressure 142/86 Blood Pressure [Right] O2 Sat by Pulse 99 99 Oximetry 09/01/19 09/01/19 09/01/19 00:13 00:16 00:21 Temperature Pulse Rate 94 H 87 Respiratory 18 Rate Blood Pressure Blood Pressure [Right] O2 Sat by Pulse 100 98 Oximetry 09/01/19 09/01/19 09/01/19 00:26 00:31 00:34 Temperature Pulse Rate 92 H 82 86 Respiratory Rate Blood Pressure 110/70 Blood Pressure [Right] O2 Sat by Pulse 98 97 Oximetry 09/01/19 09/01/19 09/01/19 00:36 00:41 00:45 Temperature Pulse Rate 89 90 85 Respiratory Rate Blood Pressure Blood Pressure [Right] O2 Sat by Pulse 96 96 94 Oximetry 09/01/19 09/01/19 09/01/19 00:46 00:51 00:53 Temperature Pulse Rate 90 97 H 87 Respiratory Rate Blood Pressure Blood Pressure [Right] O2 Sat by Pulse 96 96 94 Oximetry 09/01/19 09/01/19 09/01/19 00:56 01:01 01:04 Temperature Pulse Rate 100 H 81 97 H Respiratory Rate Blood Pressure 109/68 Blood Pressure [Right] O2 Sat by Pulse 96 96 Oximetry 09/01/19 09/01/19 09/01/19 01:06 01:11 01:13 Temperature Pulse Rate 87 100 H 87 Respiratory Rate Blood Pressure Blood Pressure [Right] O2 Sat by Pulse 96 96 94 Oximetry 09/01/19 09/01/19 09/01/19 01:16 01:21 01:26 Temperature Pulse Rate 99 H 87 91 H Respiratory Rate Blood Pressure Blood Pressure [Right] O2 Sat by Pulse 95 95 97 Oximetry 09/01/19 09/01/19 09/01/19 01:31 01:35 01:36 Temperature Pulse Rate 93 H 88 93 H Respiratory Rate Blood Pressure 134/82 Blood Pressure [Right] O2 Sat by Pulse 98 97 Oximetry 09/01/19 09/01/19 09/01/19 01:41 01:46 01:51 Temperature Pulse Rate 96 H 100 H 94 H Respiratory Rate Blood Pressure Blood Pressure [Right] O2 Sat by Pulse 97 97 97 Oximetry 09/01/19 09/01/19 09/01/19 01:56 02:01 02:05 Temperature Pulse Rate 98 H 88 88 Respiratory Rate Blood Pressure 128/83 Blood Pressure [Right] O2 Sat by Pulse 98 97 Oximetry 09/01/19 09/01/19 09/01/19 02:06 02:11 02:16 Temperature Pulse Rate 91 H 92 H 88 Respiratory Rate Blood Pressure Blood Pressure [Right] O2 Sat by Pulse 97 97 98 Oximetry 09/01/19 09/01/19 09/01/19 02:21 02:26 02:31 Temperature Pulse Rate 82 91 H 94 H Respiratory Rate Blood Pressure Blood Pressure [Right] O2 Sat by Pulse 97 97 97 Oximetry 09/01/19 09/01/19 09/01/19 02:34 02:36 02:41 Temperature Pulse Rate 94 H 95 H 93 H Respiratory Rate Blood Pressure 140/79 Blood Pressure [Right] O2 Sat by Pulse 99 98 Oximetry 09/01/19 09/01/19 09/01/19 02:46 02:51 02:56 Temperature Pulse Rate 97 H 100 H 87 Respiratory Rate Blood Pressure Blood Pressure [Right] O2 Sat by Pulse 98 97 98 Oximetry 09/01/19 09/01/19 09/01/19 03:01 03:05 03:06 Temperature Pulse Rate 102 H 104 H 103 H Respiratory Rate Blood Pressure 140/73 Blood Pressure [Right] O2 Sat by Pulse 97 99 Oximetry 09/01/19 09/01/19 09/01/19 03:11 03:16 03:20 Temperature Pulse Rate 103 H 110 H 95 H Respiratory Rate Blood Pressure 124/71 Blood Pressure [Right] O2 Sat by Pulse 98 98 Oximetry 09/01/19 09/01/19 09/01/19 03:21 03:23 03:25 Temperature Pulse Rate 99 H 98 H 102 H Respiratory Rate Blood Pressure 154/76 104/62 Blood Pressure [Right] O2 Sat by Pulse 98 Oximetry 09/01/19 09/01/19 09/01/19 03:26 03:27 03:29 Temperature Pulse Rate 102 H 103 H 96 H Respiratory Rate Blood Pressure 87/52 74/36 Blood Pressure [Right] O2 Sat by Pulse 98 Oximetry 09/01/19 09/01/19 09/01/19 03:30 03:31 03:32 Temperature Pulse Rate 87 83 81 Respiratory Rate Blood Pressure 79/42 79/43 Blood Pressure [Right] O2 Sat by Pulse 100 Oximetry 09/01/19 09/01/19 09/01/19 03:33 03:35 03:36 Temperature Pulse Rate 96 H 96 H 96 H Respiratory Rate Blood Pressure 69/35 69/38 Blood Pressure [Right] O2 Sat by Pulse 0 L 100 Oximetry 09/01/19 09/01/19 09/01/19 03:38 03:40 03:41 Temperature Pulse Rate 96 H 111 H 107 H Respiratory Rate Blood Pressure 76/44 72/35 Blood Pressure [Right] O2 Sat by Pulse 100 Oximetry 09/01/19 09/01/19 09/01/19 03:45 03:46 03:47 Temperature Pulse Rate 90 86 80 Respiratory Rate Blood Pressure 87/50 90/55 Blood Pressure [Right] O2 Sat by Pulse 100 Oximetry 09/01/19 09/01/19 09/01/19 03:48 03:50 03:51 Temperature Pulse Rate 106 H 102 H 98 H Respiratory Rate Blood Pressure 85/47 85/48 Blood Pressure [Right] O2 Sat by Pulse 100 Oximetry 09/01/19 09/01/19 09/01/19 03:56 03:59 04:01 Temperature Pulse Rate 88 110 H 92 H Respiratory Rate Blood Pressure Blood Pressure [Right] O2 Sat by Pulse 100 91 92 Oximetry 09/01/19 09/01/19 09/01/19 04:06 04:08 04:11 Temperature Pulse Rate 84 83 77 Respiratory Rate Blood Pressure 97/53 Blood Pressure [Right] O2 Sat by Pulse 91 93 99 Oximetry 09/01/19 09/01/19 09/01/19 04:16 04:21 04:22 Temperature Pulse Rate 91 H 81 83 Respiratory Rate Blood Pressure 88/51 Blood Pressure [Right] O2 Sat by Pulse 100 99 Oximetry 09/01/19 09/01/19 09/01/19 04:26 04:31 04:36 Temperature Pulse Rate 78 84 94 H Respiratory Rate Blood Pressure Blood Pressure [Right] O2 Sat by Pulse 99 99 98 Oximetry 09/01/19 09/01/19 09/01/19 04:38 04:41 04:46 Temperature Pulse Rate 88 100 H 98 H Respiratory Rate Blood Pressure 103/56 Blood Pressure [Right] O2 Sat by Pulse 99 99 Oximetry 09/01/19 09/01/19 09/01/19 04:51 04:52 04:56 Temperature Pulse Rate 95 H 100 H 95 H Respiratory Rate Blood Pressure 115/65 Blood Pressure [Right] O2 Sat by Pulse 99 99 Oximetry 09/01/19 09/01/19 09/01/19 05:01 05:06 05:08 Temperature Pulse Rate 95 H 100 H 90 Respiratory Rate Blood Pressure 127/60 Blood Pressure [Right] O2 Sat by Pulse 99 99 Oximetry 09/01/19 09/01/19 09/01/19 05:11 05:16 05:21 Temperature Pulse Rate 92 H 97 H 98 H Respiratory Rate Blood Pressure Blood Pressure [Right] O2 Sat by Pulse 98 98 98 Oximetry 09/01/19 09/01/19 09/01/19 05:22 05:26 05:31 Temperature Pulse Rate 86 88 96 H Respiratory Rate Blood Pressure 115/59 Blood Pressure [Right] O2 Sat by Pulse 97 97 Oximetry 09/01/19 09/01/19 09/01/19 05:36 05:37 05:41 Temperature Pulse Rate 93 H 96 H 90 Respiratory Rate Blood Pressure 114/59 Blood Pressure [Right] O2 Sat by Pulse 97 98 Oximetry 09/01/19 09/01/19 09/01/19 05:46 05:51 05:52 Temperature Pulse Rate 103 H 102 H 96 H Respiratory Rate Blood Pressure 113/58 Blood Pressure [Right] O2 Sat by Pulse 98 98 Oximetry 09/01/19 09/01/19 09/01/19 05:56 06:01 06:06 Temperature Pulse Rate 93 H 104 H 93 H Respiratory Rate Blood Pressure Blood Pressure [Right] O2 Sat by Pulse 98 98 98 Oximetry 09/01/19 09/01/19 09/01/19 06:07 06:11 06:16 Temperature Pulse Rate 92 H 91 H 86 Respiratory Rate Blood Pressure 119/60 Blood Pressure [Right] O2 Sat by Pulse 98 98 Oximetry 09/01/19 09/01/19 09/01/19 06:21 06:23 06:26 Temperature Pulse Rate 93 H 107 H 111 H Respiratory Rate Blood Pressure 127/59 Blood Pressure [Right] O2 Sat by Pulse 98 99 Oximetry 09/01/19 09/01/19 09/01/19 06:31 06:36 06:37 Temperature Pulse Rate 112 H 99 H 96 H Respiratory Rate Blood Pressure 112/55 Blood Pressure [Right] O2 Sat by Pulse 99 99 Oximetry 09/01/19 09/01/19 09/01/19 06:41 06:46 06:51 Temperature Pulse Rate 101 H 95 H 91 H Respiratory Rate Blood Pressure Blood Pressure [Right] O2 Sat by Pulse 99 99 99 Oximetry 09/01/19 09/01/19 09/01/19 06:53 06:56 07:01 Temperature Pulse Rate 96 H 96 H 105 H Respiratory Rate Blood Pressure 122/56 Blood Pressure [Right] O2 Sat by Pulse 98 99 Oximetry 09/01/19 09/01/19 09/01/19 07:06 07:07 07:11 Temperature Pulse Rate 99 H 99 H 99 H Respiratory Rate Blood Pressure 111/58 Blood Pressure [Right] O2 Sat by Pulse 99 98 Oximetry 09/01/19 09/01/19 09/01/19 07:16 07:21 07:24 Temperature Pulse Rate 100 H 106 H 106 H Respiratory Rate Blood Pressure 126/59 Blood Pressure [Right] O2 Sat by Pulse 97 98 Oximetry 09/01/19 09/01/19 09/01/19 07:26 07:31 07:36 Temperature Pulse Rate 104 H 103 H 96 H Respiratory Rate Blood Pressure Blood Pressure [Right] O2 Sat by Pulse 99 98 97 Oximetry 09/01/19 09/01/19 09/01/19 07:37 07:41 07:46 Temperature Pulse Rate 93 H 114 H 95 H Respiratory Rate Blood Pressure 114/57 Blood Pressure [Right] O2 Sat by Pulse 100 98 Oximetry 09/01/19 09/01/19 09/01/19 07:48 07:49 07:51 Temperature 98 F Pulse Rate 105 H 103 H 105 H Respiratory 16 Rate Blood Pressure 100/57 Blood Pressure 100/57 [Right] O2 Sat by Pulse 98 99 Oximetry 09/01/19 09/01/19 09/01/19 07:56 08:01 08:06 Temperature Pulse Rate 101 H 100 H 93 H Respiratory Rate Blood Pressure Blood Pressure [Right] O2 Sat by Pulse 100 100 99 Oximetry 09/01/19 09/01/19 09/01/19 08:07 08:11 08:16 Temperature Pulse Rate 90 91 H 99 H Respiratory Rate Blood Pressure 119/60 Blood Pressure [Right] O2 Sat by Pulse 99 99 Oximetry 09/01/19 09/01/19 09/01/19 08:21 08:23 08:26 Temperature Pulse Rate 111 H 101 H 96 H Respiratory Rate Blood Pressure 110/64 Blood Pressure [Right] O2 Sat by Pulse 99 99 Oximetry 09/01/19 09/01/19 09/01/19 08:31 08:36 08:37 Temperature Pulse Rate 94 H 100 H 96 H Respiratory Rate Blood Pressure 104/57 Blood Pressure [Right] O2 Sat by Pulse 98 98 Oximetry 09/01/19 09/01/19 09/01/19 08:41 08:46 08:51 Temperature Pulse Rate 98 H 100 H 99 H Respiratory Rate Blood Pressure Blood Pressure [Right] O2 Sat by Pulse 97 97 98 Oximetry 09/01/19 09/01/19 09/01/19 08:52 08:56 09:00 Temperature 98.3 F Pulse Rate 112 H 102 H Respiratory Rate Blood Pressure 107/63 Blood Pressure [Right] O2 Sat by Pulse 98 Oximetry 09/01/19 09/01/19 09/01/19 09:01 09:06 09:08 Temperature Pulse Rate 103 H 106 H 105 H Respiratory Rate Blood Pressure 119/63 Blood Pressure [Right] O2 Sat by Pulse 97 98 Oximetry - Exam Breasts: normal Cardiovascular: Regular rate, Normal S1, Normal S2, No murmurs Lungs: Clear to auscultation, Normal air movement Abdomen: Present: normal appearance, soft, normal bowel sounds. Absent: distention Vulva: both: normal (Normal bloody show) Uterus: Present: other (Gravid) FHR: category 1 Uterine Contraction Monitor Mode: External Cervical Dilatation: 10 Cervical Effacement Percentage: 10 station: 0 Uterine Contraction Frequency (min): 4-5 Uterine Contraction Pattern: Regular Uterine Tone Measurement Phase: Resting Uterine Contraction Intensity: Moderate Extremities: normal Deep Tendon Reflex Grade: Normal +2 - Labs Labs: Abnormal Labs 08/30/19 08/30/19 08/30/19 12:15 12:15 12:24 [place] % (Auto) 8.1 H Seg Neutrophils % 72.8 H Sodium 136 L Carbon Dioxide 19 L Creatinine 0.3 L Magnesium Alkaline Phosphatase 155 H Albumin 3.4 L Urine WBC (Auto) 11.0 H U Epithel Cells (Auto) 15.0 H 08/30/19 08/31/19 08/31/19 21:50 05:49 13:07 [place] % (Auto) Seg Neutrophils % Sodium Carbon Dioxide Creatinine Magnesium 4.90 H 5.60 H 6.10 H Alkaline Phosphatase Albumin Urine WBC (Auto) U Epithel Cells (Auto) 08/31/19 19:25 [place] % (Auto) Seg Neutrophils % Sodium Carbon Dioxide Creatinine Magnesium 6.20 H Alkaline Phosphatase Albumin Urine WBC (Auto) U Epithel Cells (Auto) Laboratory Results - last 24 hr 08/31/19 08/31/19 13:07 19:25 Magnesium 6.10 H 6.20 H
[2019-09-01] MEDS ORDERED: diphenhydrAMINE 50 MG/ML VIAL IV ONE (09:30)
[2019-09-01] MEDS ORDERED: AMPICILLIN/NS 2 GM/100 ML 2 GM/100 ML BAG IV ONE (09:30)
[2019-09-01] MEDS: OXYTOCIN DRIP 30 UNITS/500 ML BAG IV SCH (09:55)
[2019-09-01] MEDS: AMPICILLIN/NS 1 GM/50 ML 1 GM/50 ML BAG IV SCH (13:04)
--- NOTE | 2019-09-01 13:13 | Progress Note ---
Assessment and Plan A: Term IUP Preeclampsia: MgSo4 1gram/hr (last Mag level 7.10), VSS Category 1 tracing Pitocin 16MU Continuous epidural infusion complete; pt feeling some pressure Maternal Axillary Temp 99.3 P: Routine labor orders Continue MgS04 1 grams/hr MgS04 precautions Continue Pitocin Augmentation Ampicillin 1 grams IVP (AROM 08/31/19 19:47) Start Gentamycin IVPB Dr. Bell notified of ROM 18hrs, maternal temp, uneffective pushing, complete since 9:10am, epidural off. If no by 14:00, plan Primary C/S. Pt informed and understands. Subjective - Subjective Date of service: 09/01/19 Principal diagnosis: IOL at term, Preeclampsia; MgS04 Interval history: See H&P Patient reports: movement normal, contractions (Feeling some disc omfort/pressure with contractions. Epidural finished infusing ) Objective - Vital Signs Vital Signs: Vital Signs - 12hr 09/01/19 09/01/19 09/01/19 01:11 01:13 01:16 Temperature Pulse Rate 100 H 87 99 H Respiratory Rate Blood Pressure Blood Pressure [Right] O2 Sat by Pulse 96 94 95 Oximetry 09/01/19 09/01/19 09/01/19 01:21 01:26 01:31 Temperature Pulse Rate 87 91 H 93 H Respiratory Rate Blood Pressure Blood Pressure [Right] O2 Sat by Pulse 95 97 98 Oximetry 09/01/19 09/01/19 09/01/19 01:35 01:36 01:41 Temperature Pulse Rate 88 93 H 96 H Respiratory Rate Blood Pressure 134/82 Blood Pressure [Right] O2 Sat by Pulse 97 97 Oximetry 09/01/19 09/01/19 09/01/19 01:46 01:51 01:56 Temperature Pulse Rate 100 H 94 H 98 H Respiratory Rate Blood Pressure Blood Pressure [Right] O2 Sat by Pulse 97 97 98 Oximetry 09/01/19 09/01/19 09/01/19 02:01 02:05 02:06 Temperature Pulse Rate 88 88 91 H Respiratory Rate Blood Pressure 128/83 Blood Pressure [Right] O2 Sat by Pulse 97 97 Oximetry 09/01/19 09/01/19 09/01/19 02:11 02:16 02:21 Temperature Pulse Rate 92 H 88 82 Respiratory Rate Blood Pressure Blood Pressure [Right] O2 Sat by Pulse 97 98 97 Oximetry 09/01/19 09/01/19 09/01/19 02:26 02:31 02:34 Temperature Pulse Rate 91 H 94 H 94 H Respiratory Rate Blood Pressure 140/79 Blood Pressure [Right] O2 Sat by Pulse 97 97 Oximetry 09/01/19 09/01/19 09/01/19 02:36 02:41 02:46 Temperature Pulse Rate 95 H 93 H 97 H Respiratory Rate Blood Pressure Blood Pressure [Right] O2 Sat by Pulse 99 98 98 Oximetry 09/01/19 09/01/19 09/01/19 02:51 02:56 03:01 Temperature Pulse Rate 100 H 87 102 H Respiratory Rate Blood Pressure Blood Pressure [Right] O2 Sat by Pulse 97 98 97 Oximetry 09/01/19 09/01/19 09/01/19 03:05 03:06 03:11 Temperature Pulse Rate 104 H 103 H 103 H Respiratory Rate Blood Pressure 140/73 Blood Pressure [Right] O2 Sat by Pulse 99 98 Oximetry 09/01/19 09/01/19 09/01/19 03:16 03:20 03:21 Temperature Pulse Rate 110 H 95 H 99 H Respiratory Rate Blood Pressure 124/71 Blood Pressure [Right] O2 Sat by Pulse 98 98 Oximetry 09/01/19 09/01/19 09/01/19 03:23 03:25 03:26 Temperature Pulse Rate 98 H 102 H 102 H Respiratory Rate Blood Pressure 154/76 104/62 Blood Pressure [Right] O2 Sat by Pulse 98 Oximetry 09/01/19 09/01/19 09/01/19 03:27 03:29 03:30 Temperature Pulse Rate 103 H 96 H 87 Respiratory Rate Blood Pressure 87/52 74/36 79/42 Blood Pressure [Right] O2 Sat by Pulse Oximetry 09/01/19 09/01/19 09/01/19 03:31 03:32 03:33 Temperature Pulse Rate 83 81 96 H Respiratory Rate Blood Pressure 79/43 Blood Pressure [Right] O2 Sat by Pulse 100 0 L Oximetry 09/01/19 09/01/19 09/01/19 03:35 03:36 03:38 Temperature Pulse Rate 96 H 96 H 96 H Respiratory Rate Blood Pressure 69/35 69/38 76/44 Blood Pressure [Right] O2 Sat by Pulse 100 Oximetry 09/01/19 09/01/19 09/01/19 03:40 03:41 03:45 Temperature Pulse Rate 111 H 107 H 90 Respiratory Rate Blood Pressure 72/35 87/50 Blood Pressure [Right] O2 Sat by Pulse 100 Oximetry 09/01/19 09/01/19 09/01/19 03:46 03:47 03:48 Temperature Pulse Rate 86 80 106 H Respiratory Rate Blood Pressure 90/55 85/47 Blood Pressure [Right] O2 Sat by Pulse 100 Oximetry 09/01/19 09/01/19 09/01/19 03:50 03:51 03:56 Temperature Pulse Rate 102 H 98 H 88 Respiratory Rate Blood Pressure 85/48 Blood Pressure [Right] O2 Sat by Pulse 100 100 Oximetry 09/01/19 09/01/19 09/01/19 03:59 04:01 04:06 Temperature Pulse Rate 110 H 92 H 84 Respiratory Rate Blood Pressure Blood Pressure [Right] O2 Sat by Pulse 91 92 91 Oximetry 09/01/19 09/01/19 09/01/19 04:08 04:11 04:16 Temperature Pulse Rate 83 77 91 H Respiratory Rate Blood Pressure 97/53 Blood Pressure [Right] O2 Sat by Pulse 93 99 100 Oximetry 09/01/19 09/01/19 09/01/19 04:21 04:22 04:26 Temperature Pulse Rate 81 83 78 Respiratory Rate Blood Pressure 88/51 Blood Pressure [Right] O2 Sat by Pulse 99 99 Oximetry 09/01/19 09/01/19 09/01/19 04:31 04:36 04:38 Temperature Pulse Rate 84 94 H 88 Respiratory Rate Blood Pressure 103/56 Blood Pressure [Right] O2 Sat by Pulse 99 98 Oximetry 09/01/19 09/01/19 09/01/19 04:41 04:46 04:51 Temperature Pulse Rate 100 H 98 H 95 H Respiratory Rate Blood Pressure Blood Pressure [Right] O2 Sat by Pulse 99 99 99 Oximetry 09/01/19 09/01/19 09/01/19 04:52 04:56 05:01 Temperature Pulse Rate 100 H 95 H 95 H Respiratory Rate Blood Pressure 115/65 Blood Pressure [Right] O2 Sat by Pulse 99 99 Oximetry 09/01/19 09/01/19 09/01/19 05:06 05:08 05:11 Temperature Pulse Rate 100 H 90 92 H Respiratory Rate Blood Pressure 127/60 Blood Pressure [Right] O2 Sat by Pulse 99 98 Oximetry 09/01/19 09/01/19 09/01/19 05:16 05:21 05:22 Temperature Pulse Rate 97 H 98 H 86 Respiratory Rate Blood Pressure 115/59 Blood Pressure [Right] O2 Sat by Pulse 98 98 Oximetry 09/01/19 09/01/19 09/01/19 05:26 05:31 05:36 Temperature Pulse Rate 88 96 H 93 H Respiratory Rate Blood Pressure Blood Pressure [Right] O2 Sat by Pulse 97 97 97 Oximetry 09/01/19 09/01/19 09/01/19 05:37 05:41 05:46 Temperature Pulse Rate 96 H 90 103 H Respiratory Rate Blood Pressure 114/59 Blood Pressure [Right] O2 Sat by Pulse 98 98 Oximetry 09/01/19 09/01/19 09/01/19 05:51 05:52 05:56 Temperature Pulse Rate 102 H 96 H 93 H Respiratory Rate Blood Pressure 113/58 Blood Pressure [Right] O2 Sat by Pulse 98 98 Oximetry 09/01/19 09/01/19 09/01/19 06:01 06:06 06:07 Temperature Pulse Rate 104 H 93 H 92 H Respiratory Rate Blood Pressure 119/60 Blood Pressure [Right] O2 Sat by Pulse 98 98 Oximetry 09/01/19 09/01/19 09/01/19 06:11 06:16 06:21 Temperature Pulse Rate 91 H 86 93 H Respiratory Rate Blood Pressure Blood Pressure [Right] O2 Sat by Pulse 98 98 98 Oximetry 09/01/19 09/01/19 09/01/19 06:23 06:26 06:31 Temperature Pulse Rate 107 H 111 H 112 H Respiratory Rate Blood Pressure 127/59 Blood Pressure [Right] O2 Sat by Pulse 99 99 Oximetry 09/01/19 09/01/19 09/01/19 06:36 06:37 06:41 Temperature Pulse Rate 99 H 96 H 101 H Respiratory Rate Blood Pressure 112/55 Blood Pressure [Right] O2 Sat by Pulse 99 99 Oximetry 09/01/19 09/01/19 09/01/19 06:46 06:51 06:53 Temperature Pulse Rate 95 H 91 H 96 H Respiratory Rate Blood Pressure 122/56 Blood Pressure [Right] O2 Sat by Pulse 99 99 Oximetry 09/01/19 09/01/19 09/01/19 06:56 07:01 07:06 Temperature Pulse Rate 96 H 105 H 99 H Respiratory Rate Blood Pressure Blood Pressure [Right] O2 Sat by Pulse 98 99 99 Oximetry 09/01/19 09/01/19 09/01/19 07:07 07:11 07:16 Temperature Pulse Rate 99 H 99 H 100 H Respiratory Rate Blood Pressure 111/58 Blood Pressure [Right] O2 Sat by Pulse 98 97 Oximetry 09/01/19 09/01/19 09/01/19 07:21 07:24 07:26 Temperature Pulse Rate 106 H 106 H 104 H Respiratory Rate Blood Pressure 126/59 Blood Pressure [Right] O2 Sat by Pulse 98 99 Oximetry 09/01/19 09/01/19 09/01/19 07:31 07:36 07:37 Temperature Pulse Rate 103 H 96 H 93 H Respiratory Rate Blood Pressure 114/57 Blood Pressure [Right] O2 Sat by Pulse 98 97 Oximetry 09/01/19 09/01/19 09/01/19 07:41 07:46 07:48 Temperature 98 F Pulse Rate 114 H 95 H 105 H Respiratory 16 Rate Blood Pressure Blood Pressure 100/57 [Right] O2 Sat by Pulse 100 98 98 Oximetry 09/01/19 09/01/19 09/01/19 07:49 07:51 07:56 Temperature Pulse Rate 103 H 105 H 101 H Respiratory Rate Blood Pressure 100/57 Blood Pressure [Right] O2 Sat by Pulse 99 100 Oximetry 09/01/19 09/01/19 09/01/19 08:01 08:06 08:07 Temperature Pulse Rate 100 H 93 H 90 Respiratory Rate Blood Pressure 119/60 Blood Pressure [Right] O2 Sat by Pulse 100 99 Oximetry 09/01/19 09/01/19 09/01/19 08:11 08:16 08:21 Temperature Pulse Rate 91 H 99 H 111 H Respiratory Rate Blood Pressure Blood Pressure [Right] O2 Sat by Pulse 99 99 99 Oximetry 09/01/19 09/01/19 09/01/19 08:23 08:26 08:31 Temperature Pulse Rate 101 H 96 H 94 H Respiratory Rate Blood Pressure 110/64 Blood Pressure [Right] O2 Sat by Pulse 99 98 Oximetry 09/01/19 09/01/19 09/01/19 08:36 08:37 08:41 Temperature Pulse Rate 100 H 96 H 98 H Respiratory Rate Blood Pressure 104/57 Blood Pressure [Right] O2 Sat by Pulse 98 97 Oximetry 09/01/19 09/01/19 09/01/19 08:46 08:51 08:52 Temperature Pulse Rate 100 H 99 H 112 H Respiratory Rate Blood Pressure 107/63 Blood Pressure [Right] O2 Sat by Pulse 97 98 Oximetry 09/01/19 09/01/19 09/01/19 08:56 09:00 09:01 Temperature 98.3 F Pulse Rate 102 H 103 H Respiratory Rate Blood Pressure Blood Pressure [Right] O2 Sat by Pulse 98 97 Oximetry 09/01/19 09/01/19 09/01/19 09:06 09:08 09:11 Temperature Pulse Rate 106 H 105 H 107 H Respiratory Rate Blood Pressure 119/63 Blood Pressure [Right] O2 Sat by Pulse 98 97 Oximetry 09/01/19 09/01/19 09/01/19 09:16 09:21 09:23 Temperature Pulse Rate 100 H 115 H 104 H Respiratory Rate Blood Pressure 126/75 Blood Pressure [Right] O2 Sat by Pulse 98 99 Oximetry 09/01/19 09/01/19 09/01/19 09:26 09:31 09:36 Temperature Pulse Rate 113 H 98 H 96 H Respiratory Rate Blood Pressure Blood Pressure [Right] O2 Sat by Pulse 99 96 98 Oximetry 09/01/19 09/01/19 09/01/19 09:38 09:41 09:46 Temperature Pulse Rate 100 H 93 H 88 Respiratory Rate Blood Pressure 137/62 Blood Pressure [Right] O2 Sat by Pulse 100 99 Oximetry 09/01/19 09/01/19 09/01/19 09:51 09:53 09:56 Temperature Pulse Rate 90 94 H 102 H Respiratory Rate Blood Pressure 128/59 Blood Pressure [Right] O2 Sat by Pulse 98 98 Oximetry 09/01/19 09/01/19 09/01/19 10:01 10:06 10:07 Temperature Pulse Rate 105 H 94 H 97 H Respiratory Rate Blood Pressure 130/60 Blood Pressure [Right] O2 Sat by Pulse 98 98 Oximetry 09/01/19 09/01/19 09/01/19 10:11 10:16 10:21 Temperature Pulse Rate 95 H 94 H 102 H Respiratory Rate Blood Pressure Blood Pressure [Right] O2 Sat by Pulse 98 99 98 Oximetry 09/01/19 09/01/19 09/01/19 10:26 10:31 10:36 Temperature Pulse Rate 93 H 108 H 99 H Respiratory Rate Blood Pressure Blood Pressure [Right] O2 Sat by Pulse 98 100 100 Oximetry 09/01/19 09/01/19 09/01/19 10:37 10:41 10:46 Temperature Pulse Rate 88 91 H 93 H Respiratory Rate Blood Pressure 129/63 Blood Pressure [Right] O2 Sat by Pulse 99 99 Oximetry 09/01/19 09/01/19 09/01/19 10:51 10:52 10:56 Temperature Pulse Rate 94 H 97 H 92 H Respiratory Rate Blood Pressure 133/63 Blood Pressure [Right] O2 Sat by Pulse 99 98 Oximetry 09/01/19 09/01/19 09/01/19 11:01 11:06 11:07 Temperature Pulse Rate 108 H 96 H 100 H Respiratory Rate Blood Pressure 140/66 Blood Pressure [Right] O2 Sat by Pulse 99 99 Oximetry 09/01/19 09/01/19 09/01/19 11:11 11:16 11:21 Temperature Pulse Rate 91 H 108 H 88 Respiratory Rate Blood Pressure Blood Pressure [Right] O2 Sat by Pulse 99 99 99 Oximetry 09/01/19 09/01/19 09/01/19 11:22 11:26 11:31 Temperature Pulse Rate 88 95 H 95 H Respiratory Rate Blood Pressure 132/64 Blood Pressure [Right] O2 Sat by Pulse 99 99 Oximetry 09/01/19 09/01/19 09/01/19 11:35 11:36 11:37 Temperature 98.3 F Pulse Rate 97 H 99 H Respiratory Rate Blood Pressure 129/61 Blood Pressure [Right] O2 Sat by Pulse 99 Oximetry 09/01/19 09/01/19 09/01/19 11:41 11:46 11:51 Temperature Pulse Rate 93 H 97 H 100 H Respiratory Rate Blood Pressure Blood Pressure [Right] O2 Sat by Pulse 98 99 99 Oximetry 09/01/19 09/01/19 09/01/19 11:56 12:01 12:06 Temperature Pulse Rate 98 H 101 H 103 H Respiratory Rate Blood Pressure Blood Pressure [Right] O2 Sat by Pulse 99 100 100 Oximetry 09/01/19 09/01/19 09/01/19 12:08 12:11 12:16 Temperature Pulse Rate 100 H 103 H 101 H Respiratory Rate Blood Pressure 141/77 Blood Pressure [Right] O2 Sat by Pulse 99 99 Oximetry 09/01/19 09/01/19 09/01/19 12:21 12:26 12:31 Temperature Pulse Rate 105 H 104 H 109 H Respiratory Rate Blood Pressure Blood Pressure [Right] O2 Sat by Pulse 100 99 99 Oximetry 09/01/19 09/01/19 09/01/19 12:36 12:37 12:41 Temperature Pulse Rate 109 H 113 H 119 H Respiratory Rate Blood Pressure 134/85 Blood Pressure [Right] O2 Sat by Pulse 100 99 Oximetry 09/01/19 09/01/19 09/01/19 12:46 12:47 12:51 Temperature Pulse Rate 113 H 115 H 116 H Respiratory Rate Blood Pressure Blood Pressure [Right] O2 Sat by Pulse 97 84 98 Oximetry 09/01/19 09/01/19 09/01/19 12:56 13:01 13:06 Temperature Pulse Rate 107 H 111 H 121 H Respiratory Rate Blood Pressure Blood Pressure [Right] O2 Sat by Pulse 98 99 98 Oximetry - Exam Breasts: normal Cardiovascular: Regular rate, Normal S1, Normal S2, No murmurs Lungs: Clear to auscultation, Normal air movement Abdomen: Present: normal appearance, soft, normal bowel sounds Vulva: both: normal (Clear fluid noted with Exam) Uterus: Present: other (Gravid) FHR: category 1 Uterine Contraction Monitor Mode: External Cervical Dilatation: 10 (Several practice pushes with coaching by . Pt not pushing effectively. ) Cervical Effacement Percentage: 100 station: 0 Uterine Contraction Frequency (min): 3-5 Uterine Contraction Duration: 90-120 Uterine Contraction Pattern: Regular Uterine Tone Measurement Phase: Resting Uterine Contraction Intensity: Moderate Extremities: normal Deep Tendon Reflex Grade: Normal +2 - Labs Labs: Abnormal Labs 08/30/19 08/30/19 08/30/19 12:15 12:15 12:24 [place] % (Auto) 8.1 H Seg Neutrophils % 72.8 H Sodium 136 L Carbon Dioxide 19 L Creatinine 0.3 L Magnesium Alkaline Phosphatase 155 H Albumin 3.4 L Urine WBC (Auto) 11.0 H U Epithel Cells (Auto) 15.0 H 08/30/19 08/31/19 08/31/19 21:50 05:49 13:07 [place] % (Auto) Seg Neutrophils % Sodium Carbon Dioxide Creatinine Magnesium 4.90 H 5.60 H 6.10 H Alkaline Phosphatase Albumin Urine WBC (Auto) U Epithel Cells (Auto) 08/31/19 09/01/19 19:25 09:04 [place] % (Auto) Seg Neutrophils % Sodium Carbon Dioxide Creatinine Magnesium 6.20 H 7.20 H Alkaline Phosphatase Albumin Urine WBC (Auto) U Epithel Cells (Auto) Laboratory Results - last 24 hr 08/31/19 08/31/19 09/01/19 13:07 19:25 09:04 Magnesium 6.10 H 6.20 H 7.20 H
[2019-09-01] MEDS ORDERED: FAMOTIDINE 20 MG/2 ML INJ IV SCH (13:23)
[2019-09-01] MEDS ORDERED: METOCLOPRAMIDE 10 MG/2 ML INJ IV ONE (13:23)
[2019-09-01] MEDS ORDERED: BICITRA ORAL LIQD 30ML PO SCH (13:23)
--- NOTE | 2019-09-01 13:27 | Progress Note ---
Assessment and Plan Arrest of Descent Preeclampsia Plan: NPO to OR for delivery Maternal/ well being reassuring overall Horace SPICER Subjective - Subjective Date of service: 09/01/19 Principal diagnosis: IOL at term, Preeclampsia; [id number] Interval history: Patient with arrest of descent Patient unable to push, complete since 9am, +ve caput no descent with contractions, early chorioamnionitis plan for operative delivery Informed Consent Obtained NPO, nutritionists to OR Patient reports: movement normal, contractions (Feeling some discomfort/pressure with contractions. Epidural finished infusing ) Objective - Vital Signs Vital Signs: Vital Signs - 12hr 09/01/19 09/01/19 09/01/19 01:26 01:31 01:35 Temperature Pulse Rate 91 H 93 H 88 Respiratory Rate Blood Pressure 134/82 Blood Pressure [Right] O2 Sat by Pulse 97 98 Oximetry 09/01/19 09/01/19 09/01/19 01:36 01:41 01:46 Temperature Pulse Rate 93 H 96 H 100 H Respiratory Rate Blood Pressure Blood Pressure [Right] O2 Sat by Pulse 97 97 97 Oximetry 09/01/19 09/01/19 09/01/19 01:51 01:56 02:01 Temperature Pulse Rate 94 H 98 H 88 Respiratory Rate Blood Pressure Blood Pressure [Right] O2 Sat by Pulse 97 98 97 Oximetry 09/01/19 09/01/19 09/01/19 02:05 02:06 02:11 Temperature Pulse Rate 88 91 H 92 H Respiratory Rate Blood Pressure 128/83 Blood Pressure [Right] O2 Sat by Pulse 97 97 Oximetry 09/01/19 09/01/19 09/01/19 02:16 02:21 02:26 Temperature Pulse Rate 88 82 91 H Respiratory Rate Blood Pressure Blood Pressure [Right] O2 Sat by Pulse 98 97 97 Oximetry 09/01/19 09/01/19 09/01/19 02:31 02:34 02:36 Temperature Pulse Rate 94 H 94 H 95 H Respiratory Rate Blood Pressure 140/79 Blood Pressure [Right] O2 Sat by Pulse 97 99 Oximetry 09/01/19 09/01/19 09/01/19 02:41 02:46 02:51 Temperature Pulse Rate 93 H 97 H 100 H Respiratory Rate Blood Pressure Blood Pressure [Right] O2 Sat by Pulse 98 98 97 Oximetry 09/01/19 09/01/19 09/01/19 02:56 03:01 03:05 Temperature Pulse Rate 87 102 H 104 H Respiratory Rate Blood Pressure 140/73 Blood Pressure [Right] O2 Sat by Pulse 98 97 Oximetry 09/01/19 09/01/19 09/01/19 03:06 03:11 03:16 Temperature Pulse Rate 103 H 103 H 110 H Respiratory Rate Blood Pressure Blood Pressure [Right] O2 Sat by Pulse 99 98 98 Oximetry 09/01/19 09/01/19 09/01/19 03:20 03:21 03:23 Temperature Pulse Rate 95 H 99 H 98 H Respiratory Rate Blood Pressure 124/71 154/76 Blood Pressure [Right] O2 Sat by Pulse 98 Oximetry 09/01/19 09/01/19 09/01/19 03:25 03:26 03:27 Temperature Pulse Rate 102 H 102 H 103 H Respiratory Rate Blood Pressure 104/62 87/52 Blood Pressure [Right] O2 Sat by Pulse 98 Oximetry 09/01/19 09/01/19 09/01/19 03:29 03:30 03:31 Temperature Pulse Rate 96 H 87 83 Respiratory Rate Blood Pressure 74/36 79/42 Blood Pressure [Right] O2 Sat by Pulse 100 Oximetry 09/01/19 09/01/19 09/01/19 03:32 03:33 03:35 Temperature Pulse Rate 81 96 H 96 H Respiratory Rate Blood Pressure 79/43 69/35 Blood Pressure [Right] O2 Sat by Pulse 0 L Oximetry 09/01/19 09/01/19 09/01/19 03:36 03:38 03:40 Temperature Pulse Rate 96 H 96 H 111 H Respiratory Rate Blood Pressure 69/38 76/44 72/35 Blood Pressure [Right] O2 Sat by Pulse 100 Oximetry 09/01/19 09/01/19 09/01/19 03:41 03:45 03:46 Temperature Pulse Rate 107 H 90 86 Respiratory Rate Blood Pressure 87/50 Blood Pressure [Right] O2 Sat by Pulse 100 100 Oximetry 09/01/19 09/01/19 09/01/19 03:47 03:48 03:50 Temperature Pulse Rate 80 106 H 102 H Respiratory Rate Blood Pressure 90/55 85/47 85/48 Blood Pressure [Right] O2 Sat by Pulse Oximetry 09/01/19 09/01/19 09/01/19 03:51 03:56 03:59 Temperature Pulse Rate 98 H 88 110 H Respiratory Rate Blood Pressure Blood Pressure [Right] O2 Sat by Pulse 100 100 91 Oximetry 09/01/19 09/01/19 09/01/19 04:01 04:06 04:08 Temperature Pulse Rate 92 H 84 83 Respiratory Rate Blood Pressure 97/53 Blood Pressure [Right] O2 Sat by Pulse 92 91 93 Oximetry 09/01/19 09/01/19 09/01/19 04:11 04:16 04:21 Temperature Pulse Rate 77 91 H 81 Respiratory Rate Blood Pressure Blood Pressure [Right] O2 Sat by Pulse 99 100 99 Oximetry 09/01/19 09/01/19 09/01/19 04:22 04:26 04:31 Temperature Pulse Rate 83 78 84 Respiratory Rate Blood Pressure 88/51 Blood Pressure [Right] O2 Sat by Pulse 99 99 Oximetry 09/01/19 09/01/19 09/01/19 04:36 04:38 04:41 Temperature Pulse Rate 94 H 88 100 H Respiratory Rate Blood Pressure 103/56 Blood Pressure [Right] O2 Sat by Pulse 98 99 Oximetry 09/01/19 09/01/19 09/01/19 04:46 04:51 04:52 Temperature Pulse Rate 98 H 95 H 100 H Respiratory Rate Blood Pressure 115/65 Blood Pressure [Right] O2 Sat by Pulse 99 99 Oximetry 09/01/19 09/01/19 09/01/19 04:56 05:01 05:06 Temperature Pulse Rate 95 H 95 H 100 H Respiratory Rate Blood Pressure Blood Pressure [Right] O2 Sat by Pulse 99 99 99 Oximetry 09/01/19 09/01/19 09/01/19 05:08 05:11 05:16 Temperature Pulse Rate 90 92 H 97 H Respiratory Rate Blood Pressure 127/60 Blood Pressure [Right] O2 Sat by Pulse 98 98 Oximetry 09/01/19 09/01/19 09/01/19 05:21 05:22 05:26 Temperature Pulse Rate 98 H 86 88 Respiratory Rate Blood Pressure 115/59 Blood Pressure [Right] O2 Sat by Pulse 98 97 Oximetry 09/01/19 09/01/19 09/01/19 05:31 05:36 05:37 Temperature Pulse Rate 96 H 93 H 96 H Respiratory Rate Blood Pressure 114/59 Blood Pressure [Right] O2 Sat by Pulse 97 97 Oximetry 09/01/19 09/01/19 09/01/19 05:41 05:46 05:51 Temperature Pulse Rate 90 103 H 102 H Respiratory Rate Blood Pressure Blood Pressure [Right] O2 Sat by Pulse 98 98 98 Oximetry 09/01/19 09/01/19 09/01/19 05:52 05:56 06:01 Temperature Pulse Rate 96 H 93 H 104 H Respiratory Rate Blood Pressure 113/58 Blood Pressure [Right] O2 Sat by Pulse 98 98 Oximetry 09/01/19 09/01/19 09/01/19 06:06 06:07 06:11 Temperature Pulse Rate 93 H 92 H 91 H Respiratory Rate Blood Pressure 119/60 Blood Pressure [Right] O2 Sat by Pulse 98 98 Oximetry 09/01/19 09/01/19 09/01/19 06:16 06:21 06:23 Temperature Pulse Rate 86 93 H 107 H Respiratory Rate Blood Pressure 127/59 Blood Pressure [Right] O2 Sat by Pulse 98 98 Oximetry 09/01/19 09/01/19 09/01/19 06:26 06:31 06:36 Temperature Pulse Rate 111 H 112 H 99 H Respiratory Rate Blood Pressure Blood Pressure [Right] O2 Sat by Pulse 99 99 99 Oximetry 09/01/19 09/01/19 09/01/19 06:37 06:41 06:46 Temperature Pulse Rate 96 H 101 H 95 H Respiratory Rate Blood Pressure 112/55 Blood Pressure [Right] O2 Sat by Pulse 99 99 Oximetry 09/01/19 09/01/19 09/01/19 06:51 06:53 06:56 Temperature Pulse Rate 91 H 96 H 96 H Respiratory Rate Blood Pressure 122/56 Blood Pressure [Right] O2 Sat by Pulse 99 98 Oximetry 09/01/19 09/01/19 09/01/19 07:01 07:06 07:07 Temperature Pulse Rate 105 H 99 H 99 H Respiratory Rate Blood Pressure 111/58 Blood Pressure [Right] O2 Sat by Pulse 99 99 Oximetry 09/01/19 09/01/19 09/01/19 07:11 07:16 07:21 Temperature Pulse Rate 99 H 100 H 106 H Respiratory Rate Blood Pressure Blood Pressure [Right] O2 Sat by Pulse 98 97 98 Oximetry 09/01/19 09/01/19 09/01/19 07:24 07:26 07:31 Temperature Pulse Rate 106 H 104 H 103 H Respiratory Rate Blood Pressure 126/59 Blood Pressure [Right] O2 Sat by Pulse 99 98 Oximetry 09/01/19 09/01/19 09/01/19 07:36 07:37 07:41 Temperature Pulse Rate 96 H 93 H 114 H Respiratory Rate Blood Pressure 114/57 Blood Pressure [Right] O2 Sat by Pulse 97 100 Oximetry 09/01/19 09/01/19 09/01/19 07:46 07:48 07:49 Temperature 98 F Pulse Rate 95 H 105 H 103 H Respiratory 16 Rate Blood Pressure 100/57 Blood Pressure 100/57 [Right] O2 Sat by Pulse 98 98 Oximetry 09/01/19 09/01/19 09/01/19 07:51 07:56 08:01 Temperature Pulse Rate 105 H 101 H 100 H Respiratory Rate Blood Pressure Blood Pressure [Right] O2 Sat by Pulse 99 100 100 Oximetry 09/01/19 09/01/19 09/01/19 08:06 08:07 08:11 Temperature Pulse Rate 93 H 90 91 H Respiratory Rate Blood Pressure 119/60 Blood Pressure [Right] O2 Sat by Pulse 99 99 Oximetry 09/01/19 09/01/19 09/01/19 08:16 08:21 08:23 Temperature Pulse Rate 99 H 111 H 101 H Respiratory Rate Blood Pressure 110/64 Blood Pressure [Right] O2 Sat by Pulse 99 99 Oximetry 09/01/19 09/01/19 09/01/19 08:26 08:31 08:36 Temperature Pulse Rate 96 H 94 H 100 H Respiratory Rate Blood Pressure Blood Pressure [Right] O2 Sat by Pulse 99 98 98 Oximetry 09/01/19 09/01/19 09/01/19 08:37 08:41 08:46 Temperature Pulse Rate 96 H 98 H 100 H Respiratory Rate Blood Pressure 104/57 Blood Pressure [Right] O2 Sat by Pulse 97 97 Oximetry 09/01/19 09/01/19 09/01/19 08:51 08:52 08:56 Temperature Pulse Rate 99 H 112 H 102 H Respiratory Rate Blood Pressure 107/63 Blood Pressure [Right] O2 Sat by Pulse 98 98 Oximetry 09/01/19 09/01/19 09/01/19 09:00 09:01 09:06 Temperature 98.3 F Pulse Rate 103 H 106 H Respiratory Rate Blood Pressure Blood Pressure [Right] O2 Sat by Pulse 97 98 Oximetry 09/01/19 09/01/19 09/01/19 09:08 09:11 09:16 Temperature Pulse Rate 105 H 107 H 100 H Respiratory Rate Blood Pressure 119/63 Blood Pressure [Right] O2 Sat by Pulse 97 98 Oximetry 09/01/19 09/01/19 09/01/19 09:21 09:23 09:26 Temperature Pulse Rate 115 H 104 H 113 H Respiratory Rate Blood Pressure 126/75 Blood Pressure [Right] O2 Sat by Pulse 99 99 Oximetry 09/01/19 09/01/19 09/01/19 09:31 09:36 09:38 Temperature Pulse Rate 98 H 96 H 100 H Respiratory Rate Blood Pressure 137/62 Blood Pressure [Right] O2 Sat by Pulse 96 98 Oximetry 09/01/19 09/01/19 09/01/19 09:41 09:46 09:51 Temperature Pulse Rate 93 H 88 90 Respiratory Rate Blood Pressure Blood Pressure [Right] O2 Sat by Pulse 100 99 98 Oximetry 09/01/19 09/01/19 09/01/19 09:53 09:56 10:01 Temperature Pulse Rate 94 H 102 H 105 H Respiratory Rate Blood Pressure 128/59 Blood Pressure [Right] O2 Sat by Pulse 98 98 Oximetry 09/01/19 09/01/19 09/01/19 10:06 10:07 10:11 Temperature Pulse Rate 94 H 97 H 95 H Respiratory Rate Blood Pressure 130/60 Blood Pressure [Right] O2 Sat by Pulse 98 98 Oximetry 09/01/19 09/01/19 09/01/19 10:16 10:21 10:26 Temperature Pulse Rate 94 H 102 H 93 H Respiratory Rate Blood Pressure Blood Pressure [Right] O2 Sat by Pulse 99 98 98 Oximetry 09/01/19 09/01/19 09/01/19 10:31 10:36 10:37 Temperature Pulse Rate 108 H 99 H 88 Respiratory Rate Blood Pressure 129/63 Blood Pressure [Right] O2 Sat by Pulse 100 100 Oximetry 09/01/19 09/01/19 09/01/19 10:41 10:46 10:51 Temperature Pulse Rate 91 H 93 H 94 H Respiratory Rate Blood Pressure Blood Pressure [Right] O2 Sat by Pulse 99 99 99 Oximetry 09/01/19 09/01/19 09/01/19 10:52 10:56 11:01 Temperature Pulse Rate 97 H 92 H 108 H Respiratory Rate Blood Pressure 133/63 Blood Pressure [Right] O2 Sat by Pulse 98 99 Oximetry 09/01/19 09/01/19 09/01/19 11:06 11:07 11:11 Temperature Pulse Rate 96 H 100 H 91 H Respiratory Rate Blood Pressure 140/66 Blood Pressure [Right] O2 Sat by Pulse 99 99 Oximetry 09/01/19 09/01/19 09/01/19 11:16 11:21 11:22 Temperature Pulse Rate 108 H 88 88 Respiratory Rate Blood Pressure 132/64 Blood Pressure [Right] O2 Sat by Pulse 99 99 Oximetry 09/01/19 09/01/19 09/01/19 11:26 11:31 11:35 Temperature 98.3 F Pulse Rate 95 H 95 H Respiratory Rate Blood Pressure Blood Pressure [Right] O2 Sat by Pulse 99 99 Oximetry 09/01/19 09/01/19 09/01/19 11:36 11:37 11:41 Temperature Pulse Rate 97 H 99 H 93 H Respiratory Rate Blood Pressure 129/61 Blood Pressure [Right] O2 Sat by Pulse 99 98 Oximetry 09/01/19 09/01/19 09/01/19 11:46 11:51 11:56 Temperature Pulse Rate 97 H 100 H 98 H Respiratory Rate Blood Pressure Blood Pressure [Right] O2 Sat by Pulse 99 99 99 Oximetry 09/01/19 09/01/19 09/01/19 12:01 12:06 12:08 Temperature Pulse Rate 101 H 103 H 100 H Respiratory Rate Blood Pressure 141/77 Blood Pressure [Right] O2 Sat by Pulse 100 100 Oximetry 09/01/19 09/01/19 09/01/19 12:11 12:16 12:21 Temperature Pulse Rate 103 H 101 H 105 H Respiratory Rate Blood Pressure Blood Pressure [Right] O2 Sat by Pulse 99 99 100 Oximetry 09/01/19 09/01/19 09/01/19 12:26 12:31 12:36 Temperature Pulse Rate 104 H 109 H 109 H Respiratory Rate Blood Pressure Blood Pressure [Right] O2 Sat by Pulse 99 99 100 Oximetry 09/01/19 09/01/19 09/01/19 12:37 12:41 12:46 Temperature Pulse Rate 113 H 119 H 113 H Respiratory Rate Blood Pressure 134/85 Blood Pressure [Right] O2 Sat by Pulse 99 97 Oximetry 09/01/19 09/01/19 09/01/19 12:47 12:51 12:56 Temperature Pulse Rate 115 H 116 H 107 H Respiratory Rate Blood Pressure Blood Pressure [Right] O2 Sat by Pulse 84 98 98 Oximetry 09/01/19 09/01/19 09/01/19 13:01 13:06 13:09 Temperature Pulse Rate 111 H 121 H 110 H Respiratory Rate Blood Pressure 139/77 Blood Pressure [Right] O2 Sat by Pulse 99 98 Oximetry 09/01/19 09/01/19 09/01/19 13:11 13:16 13:21 Temperature Pulse Rate 120 H 115 H 129 H Respiratory Rate Blood Pressure Blood Pressure [Right] O2 Sat by Pulse 97 99 97 Oximetry - Labs Labs: Abnormal Labs 08/30/19 08/30/19 08/30/19 12:15 12:15 12:24 Jack % (Auto) 8.1 H Seg Neutrophils % 72.8 H Sodium 136 L Carbon Dioxide 19 L Creatinine 0.3 L Magnesium Alkaline Phosphatase 155 H Albumin 3.4 L Urine WBC (Auto) 11.0 H U Epithel Cells (Auto) 15.0 H 08/30/19 08/31/19 08/31/19 21:50 05:49 13:07 Jack % (Auto) Seg Neutrophils % Sodium Carbon Dioxide Creatinine Magnesium 4.90 H 5.60 H 6.10 H Alkaline Phosphatase Albumin Urine WBC (Auto) U Epithel Cells (Auto) 08/31/19 09/01/19 19:25 09:04 Jack % (Auto) Seg Neutrophils % Sodium Carbon Dioxide Creatinine Magnesium 6.20 H 7.20 H Alkaline Phosphatase Albumin Urine WBC (Auto) U Epithel Cells (Auto) Laboratory Results - last 24 hr 08/31/19 08/31/19 09/01/19 13:07 19:25 09:04 Magnesium 6.10 H 6.20 H 7.20 H
[2019-09-01] MEDS ORDERED: LACTATED RINGERS 1,000 ML IV SCH (14:00)
[2019-09-01] MEDS ORDERED: OXYTOCIN 20 UNIT/1000ML DRIP 20 UNITS/1,000 ML BAG IV SCH ×2 (14:00→16:00)
[2019-09-01] MEDS ORDERED: ceFAZolin/Water 2 GM/20 ML 2 GM/20 ML SYRINGE IV NR (14:00)
[2019-09-01] MEDS ORDERED: METHYLERGONOVINE MALEATE 0.2 MG/ML VIAL IM ONE (14:05)
[2019-09-01] MEDS ORDERED: LIDOCAINE MPF (2%) 20 MG/1 ML VIAL 5 ML ONE (14:31)
[2019-09-01] MEDS ORDERED: SODIUM BICARB 8.4% 50 MEQ/50 ML VIAL IV ONE (14:31)
[2019-09-01] MEDS ORDERED: WATER FOR IRRIG STERILE 1,500 ML BOTTLE IR ONE (14:48)
[2019-09-01] MEDS ORDERED: SODIUM CHLORIDE 0.9% IRR 1,500 ML BOTTLE IR ONE (14:48)
[2019-09-01] MEDS ORDERED: NALOXONE 0.4 MG/1 ML INJ IV PRN ×2 (15:41→19:18)
[2019-09-01] MEDS ORDERED: WITCH HAZEL/ GLYCERIN PAD TP PRN (15:41)
[2019-09-01] MEDS ORDERED: LANOLIN/ZINC/DIMETHICONE (LANSINOH) 7 GM TP PRN (15:41)
[2019-09-01] MEDS ORDERED: KETOROLAC 30 MG/1 ML INJ ONE (15:41)
--- NOTE | 2019-09-01 15:52 | Procedure Note ---
OB Delivery Note - Delivery Date of Delivery: 09/01/19 Surgeon: TAY SARKAR Estimated blood loss: other (600ml) - Section Preop diagnosis: arrest of descent Postop diagnosis: same section procedure: primary low transverse Disposition: PACU Complications: none Narrative: Date of Surgery 09/01/19 Preoperative Diagnosis: IUP at term, arrest of descent, early chorio- amnionitis, preeclampsia Postoperative Diagnosis: same Procedure: Primary Low-Transverse section via Pfannenstiel Incision Surgeon: Dr Tay Sarkar Assist: scrub Anesthesia: Epidural EBL 600ml IV Fluids: 1500ml Urine output: 200ml Drains: Cummins to gravity Complications: none Findings: viable female, weight 3033gms, 9/9. Normal uterus, tubes and ovaries bilterally. Patient was noted to have arrest of descent with signs of early chorioamnionitis. The decision was made to move to delivery and informed consent obtained. The patient was taken to the OR and adequate epidural anesthesia obtained. The patient was placed in the lateral supine position with a leftward tilt. She was prepped and draped in a sterile fashion. A time out was verified. A pfannenstiel incision was made and taken down sharply to the underlying fascia. The fascia was incised in the midline and extended laterally bluntly. The abdomen was entered bluntly and the bladder blade inserted. The vesico-uterine peritoneum was tented with forceps and incised in the midline with Metzenbaum scissors, extended laterally sharply.The uterine incision was made sharply with the scalpel and extended laterally bluntly. The vertex was delivered atraumatically, no nuchal cord and cord blood obtained. The placenta was then delivered manually, the uterus exteriorized and cleared of all clots and debris. The uterine incision was closed in two layers of 0-Vicryl. The uterus placed back in the abdomen. A second look at the uterine incision assured hemostasis. The abdomen was copiously irrigated with warm normal saline. The peritoneum was closed with 3-0 Vicryl. Ther ectus muscles approximated with 3-0 vicryl. The fascia closed with 0-Vicryl in a running fashion and the subcuticular structures closed with interrupted 3-0 Vicyl. The skin closed vicryl and a pressure dressing applied. All sponge, needle and instrument counts were correctx2. Patient tolerated the procedure well. Mom and baby to PACU/Nursery in stable condition. Placenta sent to pathology. Melissa SPICER - A at 1 minute: 9 at 5 minutes: 9 Infant Gender: Female (weight 3033gms)
--- NOTE | 2019-09-01 16:16 | Post Anesthesia Evaluation ---
- Post Anesthesia Evaluation Patient Participated: Yes Airway Patent: Yes Stable Respiratory Function: Yes Nausea/Vomiting: No Temp > 96.8F: Yes Pain Manageable: Yes Adequeate Hydration: Yes Anesthesia Complications: No Block Receding Appropriately: Yes
[2019-09-01] MEDS: HYDROmorphone 2 MG/1 ML INJ IV PRN (18:02)
[2019-09-01] MEDS: GENTAMICIN/NS 80 MG/100 ML 100 ML IV SCH (18:03)
[2019-09-01] MEDS ORDERED: ACETAMINOPHEN 325 MG TAB PO PRN (19:18)
[2019-09-01] MEDS ORDERED: MORPHINE 4 MG/1 ML INJ IV PRN (19:18)
[2019-09-01] MEDS ORDERED: PROMETHAZINE 25 MG RECT SUPP PR PRN (19:18)
[2019-09-01] MEDS ORDERED: ONDANSETRON 4 MG/2 ML INJ IV PRN (19:18)
[2019-09-01] MEDS ORDERED: MORPHINE 2 MG/1 ML INJ IV PRN (19:18)
[2019-09-02] MEDS: GENTAMICIN/NS 80 MG/100 ML 100 ML IV SCH ×2 (01:13→14:35)
[2019-09-02] MEDS: HYDROmorphone 2 MG/1 ML INJ IV PRN ×2 (01:14→05:53)
[2019-09-02] MEDS: MAGNESIUM SULFATE 40GM/1000ML 40 GM/1,000 ML BAG IV SCH (05:55)
[2019-09-02 06:33] LABS: Hematocrit 33.6 % (30.3-42.9); Hemoglobin 11.2 gm/dl (10.1-14.3)
[2019-09-02] MEDS: AMPICILLIN/NS 1 GM/50 ML 1 GM/50 ML BAG IV SCH (09:39)
--- NOTE | 2019-09-02 11:01 | Progress Note ---
Assessment and Plan A: /postop day 1 S/P primary low transverse section. Preeclampsia with severe features. Stable BPs. P: Continue magnesium sulfate. Subjective - Subjective Date of service: 09/02/19 Principal diagnosis: day 1 S/P primary low transverse section Interval history: day 1 S/P primary low transverse section. Receiving magnesium sulfate due to preeclampsia. Patient reports flatus. Patient reports small amount of lochia. Patient denies headache, visual disturbance, nausea or vomiting, epigastric pain, chest pain, shortness of breath, or cough. Patient reports: appetite normal, pain well controlled, flatus, no nauseated [place]: doing well Objective - Vital Signs Latest vital signs: Vital Signs Temp Pulse Resp BP BP Pulse Ox 09/02/19 10:54 100 H 98 09/02/19 10:49 100 H 98 09/02/19 10:44 102 H 98 09/02/19 10:39 93 H 98 09/02/19 10:34 95 H 98 09/02/19 10:32 95 H 119/60 09/02/19 10:29 91 H 97 09/02/19 10:24 91 H 98 09/02/19 10:19 96 H 98 09/02/19 10:14 100 H 98 09/02/19 10:09 102 H 99 09/02/19 10:04 103 H 97 09/02/19 10:02 97 H 129/75 09/02/19 09:59 98 H 98 09/02/19 09:54 96 H 97 09/02/19 09:49 103 H 97 09/02/19 09:44 99 H 97 09/02/19 09:39 102 H 97 09/02/19 09:34 102 H 98 09/02/19 09:31 106 H 116/70 09/02/19 09:29 105 H 98 09/02/19 09:24 102 H 97 09/02/19 09:19 104 H 97 09/02/19 09:14 107 H 97 09/02/19 09:09 107 H 97 09/02/19 09:04 111 H 96 09/02/19 09:01 106 H 115/68 09/02/19 08:59 103 H 96 09/02/19 08:54 105 H 96 09/02/19 08:49 103 H 96 09/02/19 08:44 98 H 96 09/02/19 08:39 103 H 96 09/02/19 08:34 103 H 96 09/02/19 08:31 99 H 122/72 09/02/19 08:29 103 H 96 09/02/19 08:24 106 H 96 09/02/19 08:19 97 H 96 09/02/19 08:14 107 H 97 09/02/19 08:09 102 H 96 09/02/19 08:04 100 H 95 09/02/19 08:01 101 H 132/78 09/02/19 07:59 103 H 97 09/02/19 07:54 106 H 97 09/02/19 07:49 101 H 96 09/02/19 07:44 101 H 97 09/02/19 07:39 104 H 96 09/02/19 07:34 101 H 95 09/02/19 07:31 111 H 145/83 09/02/19 07:29 111 H 97 09/02/19 07:24 121 H 97 09/02/19 07:19 104 H 95 09/02/19 07:14 101 H 95 09/02/19 07:09 100 H 95 09/02/19 07:04 100 H 95 09/02/19 07:01 101 H 131/77 09/02/19 07:00 102 H 94 09/02/19 06:59 99 H 94 09/02/19 06:54 104 H 95 09/02/19 06:49 107 H 95 09/02/19 06:44 109 H 96 09/02/19 06:39 97.8 F 111 H 14 96 09/02/19 06:34 108 H 96 09/02/19 06:31 108 H 130/77 09/02/19 06:30 105 H 94 09/02/19 06:29 113 H 97 09/02/19 06:24 108 H 96 09/02/19 06:19 119 H 97 09/02/19 06:18 107 H 94 09/02/19 06:14 109 H 96 09/02/19 06:09 106 H 96 09/02/19 06:04 101 H 96 09/02/19 06:01 102 H 134/79 09/02/19 05:59 103 H 96 09/02/19 05:54 102 H 97 09/02/19 05:53 16 12/14/19 05:49 102 H 97 14 05:44 109 H 97 09/02/19 05:39 105 H 97 14 05:34 107 H 96 14 05:31 111 H 132/85 09/02/19 05:29 105 H 96 14 05:24 105 H 96 14 05:19 102 H 97 09/02/19 05:14 107 H 97 09/02/19 05:09 107 H 97 09/02/19 05:04 106 H 96 09/02/19 05:01 104 H 138/79 09/02/19 04:59 104 H 98 09/02/19 04:54 103 H 97 09/02/19 04:49 106 H 97 09/02/19 04:44 102 H 97 09/02/19 04:39 107 H 96 09/02/19 04:34 103 H 97 09/02/19 04:31 108 H 131/79 09/02/19 04:29 103 H 97 09/02/19 04:24 105 H 97 09/02/19 04:19 103 H 97 09/02/19 04:14 103 H 97 09/02/19 04:09 112 H 98 09/02/19 04:04 107 H 97 09/02/19 04:01 110 H 140/74 09/02/19 03:59 104 H 96 09/02/19 03:54 109 H 96 09/02/19 03:49 99 H 96 09/02/19 03:44 106 H 96 09/02/19 03:39 105 H 96 09/02/19 03:34 109 H 96 1419 03:31 109 H 141/77 09/02/19 03:29 106 H 96 1419 03:24 104 H 96 1419 03:19 103 H 96 1419 03:14 109 H 97 09/02/19 03:09 117 H 97 09/02/19 03:04 114 H 97 09/02/19 03:01 108 H 133/71 14/19 02:59 115 H 97 14 02:54 113 H 95 14 02:49 113 H 97 09/02/19 02:44 109 H 96 09/02/19 02:39 109 H 97 09/02/19 02:34 116 H 96 09/02/19 02:31 112 H 128/68 09/02/19 02:29 109 H 96 09/02/19 02:24 114 H 97 09/02/19 02:19 105 H 96 09/02/19 02:14 107 H 96 09/02/19 02:09 109 H 96 09/02/19 02:04 101 H 95 09/02/19 02:01 102 H 125/68 94 09/02/19 01:59 101 H 96 09/02/19 01:54 99 H 96 09/02/19 01:49 100 H 96 09/02/19 01:44 98 H 16 96 09/02/19 01:39 96 H 96 09/02/19 01:34 102 H 96 09/02/19 01:31 93 H 135/74 09/02/19 01:29 98 H 97 09/02/19 01:24 94 H 97 09/02/19 01:19 106 H 97 09/02/19 01:15 98.1 F 16 09/02/19 01:14 100 H 16 98 09/02/19 01:09 104 H 98 09/02/19 01:04 101 H 99 09/02/19 01:02 96 H 153/87 09/02/19 00:59 93 H 99 09/02/19 00:54 95 H 98 09/02/19 00:49 93 H 97 14 00:44 95 H 97 14 00:39 99 H 97 1419 00:34 97 H 97 1419 00:31 96 H 141/80 1419 00:29 98 H 97 1419 00:24 95 H 97 1419 00:19 94 H 97 1419 00:14 99 H 97 1419 00:09 97 H 97 1419 00:04 92 H 97 1419 00:01 91 H 145/79 19 23:59 93 H 97 13/19 23:54 94 H 98 13/19 23:49 96 H 97 13/19 23:44 100 H 98 13/19 23:39 100 H 97 12/13/19 23:34 98 H 97 12/13/19 23:31 91 H 140/79 12/13/19 23:29 97 H 97 12/13/19 23:24 101 H 97 12/13/19 23:19 109 H 98 12/13/19 23:14 109 H 97 12/13/19 23:09 103 H 98 12/13/19 23:04 99 H 98 12/13/19 23:01 98 H 142/83 12/13/19 22:59 97 H 98 12/13/19 22:54 102 H 98 12/13/19 22:49 100 H 98 12/13/19 22:44 106 H 97 12/13/19 22:39 107 H 98 12/13/19 22:34 100 H 98 12/13/19 22:32 104 H 142/85 12/13/19 22:29 105 H 98 12/13/19 22:24 105 H 98 12/13/19 22:19 102 H 98 12/13/19 22:14 102 H 98 12/13/19 22:09 95 H 97 12/13/19 22:04 104 H 97 12/13/19 22:01 100 H 139/85 12/13/19 21:59 107 H 97 12/13/19 21:54 108 H 97 12/13/19 21:49 106 H 97 12/13/19 21:44 105 H 97 12/13/19 21:39 103 H 97 12/13/19 21:34 107 H 97 12/13/19 21:31 106 H 138/77 94 12/13/19 21:29 109 H 97 12/13/19 21:24 104 H 96 12/13/19 21:19 106 H 96 12/13/19 21:14 101 H 96 12/13/19 21:09 102 H 97 12/13/19 21:04 107 H 97 12/13/19 21:01 107 H 143/78 94 12/13/19 20:59 107 H 97 12/13/19 20:54 109 H 97 12/13/19 20:49 104 H 97 12/13/19 20:44 104 H 97 12/13/19 20:39 103 H 97 12/13/19 20:34 102 H 97 12/13/19 20:31 107 H 155/88 12/13/19 20:29 115 H 97 09/01/19 20:26 104 H 148/85 09/01/19 20:24 109 H 98 09/01/19 20:20 98.2 F 16 09/01/19 20:19 112 H 97 09/01/19 20:14 112 H 97 09/01/19 20:02 113 H 152/85 09/01/19 19:31 117 H 137/91 09/01/19 19:01 114 H 144/78 09/01/19 18:32 120 H 163/84 09/01/19 18:02 98 H 163/89 09/01/19 18:00 98.3 F 98 H 18 163/89 09/01/19 17:00 99.2 F 108 H 27 H 154/84 96 09/01/19 16:45 107 H 21 146/85 97 09/01/19 16:30 104 H 29 H 146/87 96 09/01/19 16:15 97 H 25 H 148/91 98 09/01/19 16:00 95 H 25 H 151/88 100 09/01/19 15:55 96 H 25 H 151/89 100 09/01/19 15:50 99.5 F 95 H 27 H 152/73 100 09/01/19 14:27 92 H 82 L 09/01/19 14:25 86 83 L 09/01/19 14:16 114 H 98 09/01/19 14:13 105 H 168/92 09/01/19 14:11 111 H 98 09/01/19 14:07 99 H 175/94 09/01/19 14:06 101 H 99 09/01/19 14:01 106 H 99 09/01/19 13:56 103 H 100 09/01/19 13:51 103 H 98 09/01/19 13:46 109 H 99 09/01/19 13:41 98 H 98 09/01/19 13:37 105 H 134/79 09/01/ 13:36 107 H 98 09/01/19 13:34 104 H 88 09/01/19 13:31 109 H 97 09/01/19 13:26 113 H 97 13/19 13:21 129 H 97 09/01/19 13:16 115 H 99 09/01/19 13:11 120 H 97 09/01/19 13:09 110 H 139/77 09/01/19 13:06 121 H 98 09/01/19 13:01 111 H 99 09/01/19 12:56 107 H 98 09/01/19 12:51 116 H 98 09/01/19 12:47 115 H 84 09/01/19 12:46 113 H 97 09/01/19 12:41 119 H 99 09/01/19 12:37 113 H 134/85 09/01/19 12:36 109 H 100 09/01/19 12:31 109 H 99 09/01/19 12:26 104 H 99 09/01/19 12:21 105 H 100 09/01/19 12:16 101 H 99 09/01/19 12:11 103 H 99 09/01/19 12:08 100 H 141/77 09/01/19 12:06 103 H 100 09/01/19 12:01 101 H 100 09/01/19 11:56 98 H 99 09/01/19 11:51 100 H 99 09/01/19 11:46 97 H 99 09/01/19 11:41 93 H 98 09/01/19 11:37 99 H 129/61 09/01/19 11:36 97 H 99 09/01/19 11:35 98.3 F 09/01/19 11:31 95 H 99 09/01/19 11:26 95 H 99 09/01/19 11:22 88 132/64 09/01/19 11:21 88 99 09/01/19 11:16 108 H 99 09/01/19 11:11 91 H 99 09/01/19 11:07 100 H 140/66 09/01/19 11:06 96 H 99 09/01/19 11:01 108 H 99 Intake and Output 09/01/19 09/02/19 09/02/19 23:59 07:59 15:59 Intake Total 1582.083 495.833 120 Output Total 1200 1200 Balance 382.083 -704.167 120 Intake: IV 1582.083 495.833 Gentamicin/Ns 80 mg/100 100 ml 100 ml @ 200 mls/hr IV Q8H [facility] Rx#:[id number] Lactated Ringers 1,000 ml 1000 @ 125 mls/hr IV DIRECT [facility] Rx#:[id number] MAGNESIUM SULFATE 40GM/ 182.083 1000ML 40 gm In 1,000 ml @ 2 GM/HR 50 mls/hr IV DIRECT [facility] Rx#:[id number] MAGNESIUM SULFATE 40GM/ 495.833 1000ML 40 gm In 1,000 ml @ 2 GM/HR 50 mls/hr IV DIRECT [facility] Rx#:[id number] Oral 120 Output: Urine 1200 1200 Indwelling Catheter 800 1200 Other: Total, Intake Amount 120 Total, Output Amount 150 700 - Exam Cardiovascular: Present: Regular rate, Normal S1, Normal S2, No murmurs Lungs: Present: Clear to auscultation Abdomen: Present: normal appearance, soft, normal bowel sounds. Absent: distention, tenderness, guarding, rigidity Uterus: Present: normal, firm, fundal height below umbilicus. Absent: bogginess, tenderness Extremities: Present: normal, edema (mild bilateral pedal edema). Absent: tenderness Incision: Present: normal, dry, intact, dressed - Labs Labs: Abnormal lab results 09/01/19 09/02/19 Range/Units 22:15 05:58 Magnesium 4.80 H 4.80 H (1.7-2.3) mg/dL
[2019-09-02] MEDS: IBUPROFEN 800 MG TAB PO PRN (14:34)
[2019-09-03] MEDS: HYDROcodone/ACETAMINOPHEN 5-325 MG TAB PO PRN (01:17)
[2019-09-03] MEDS: oxyCODONE /ACETAMINOPHEN 5-325MG TAB PO PRN ×2 (08:44→18:05)
[2019-09-03] MEDS: IBUPROFEN 800 MG TAB PO PRN (12:18)
--- NOTE | 2019-09-03 15:33 | Progress Note ---
Assessment and Plan A: day 2 S/P primary low transverse section. Preeclampsia. P: Continue to monitor blood pressure. Continue current management. Subjective - Subjective Date of service: 09/03/19 Principal diagnosis: day 2 S/P primary low transverse section Interval history: day 2 S/P primary low transverse section. Voiding without difficulty, ambulating well, tolerating a regular diet without nausea or vomiting. Patient reports flatus. Patient reports small amount of lochia. Patient denies headache, visual disturbance, nausea or vomiting, epigastric pain, chest pain, s hortness of breath, dizziness, cough, abdominal pain, leg pain, or heavy vaginal bleeding. Patient reports: appetite normal, voiding normally, pain well controlled, flatus, ambulating normally, no dizzy ambulation, no nauseated [place]: doing well Objective - Vital Signs Latest vital signs: Vital Signs Temp Pulse Resp BP BP Pulse Ox 09/03/19 07:36 98.3 F 80 18 133/86 98 09/03/19 05:09 97.6 F 76 18 133/85 96 09/03/19 00:29 98.3 F 104 H 18 128/74 95 09/02/19 21:06 97.7 F 91 H 18 121/81 98 Intake and Output 09/02/19 09/03/19 09/03/19 23:59 07:59 15:59 Intake Total 120 360 240 Output Total 700 800 Balance -580 -440 240 Intake: Oral 120 Intake, Free Water 360 240 Output: Urine 700 800 Void 700 800 Other: Total, Intake Amount 120 Total, Output Amount 300 800 # Voids Void 1 2 1 - Exam Cardiovascular: Present: Regular rate, Normal S1, Normal S2 Lungs: Present: Clear to auscultation Abdomen: Present: normal appearance, soft, normal bowel sounds. Absent: distention, tenderness, guarding, rigidity Uterus: Present: normal, firm, fundal height below umbilicus. Absent: bogginess, tenderness Extremities: Present: normal. Absent: tenderness, edema Incision: Present: normal, dry, intact
[2019-09-04] MEDS: HYDROcodone/ACETAMINOPHEN 5-325 MG TAB PO PRN ×3 (00:30→20:26)
--- NOTE | 2019-09-04 09:22 | Progress Note ---
Assessment and Plan A: /postop day 3 S/P low transverse section. Preeclampsia. Elevated blood pressures. P: Recheck H&H. Labetalol 100 mg po BID. Recheck BP. Patient to be discharged home later today if blood pressures stabilize. Subjective - Subjective Date of service: 09/04/19 Principal diagnosis: day 3 S/P primary low transverse section Interval history: day 3 S/P primary low transverse section. Preeclampsia. Voiding without difficulty, ambulating well, tolerating a regular diet without nausea or vomiting, passing gas. Patient reports small amount of lochia. Patient denies headache, visual disturbance, nausea or vomiting, epigastric pain, chest pain, shortness of breath, dizziness, cough, abdominal pain, leg pain, or heavy vaginal bleeding. BPs elevated. Patient reports: appetite normal, voiding normally, pain well controlled, flatus, ambulating normally, no dizzy ambulation, no nauseated [place]: doing well Objective - Vital Signs Latest vital signs: Vital Signs Temp Pulse Resp BP Pulse Ox 09/04/19 00:05 98.0 F 90 18 137/96 96 09/03/19 16:41 98.2 F 83 18 128/87 98 Intake and Output 09/03/19 09/04/19 09/04/19 23:59 07:59 15:59 Intake Total 840 120 Balance 840 120 Intake: Oral 120 120 Intake, Free Water 720 Other: Total, Intake Amount 120 120 # Voids Void 3 1 - Exam Cardiovascular: Present: Regular rate, Normal S1, Normal S2 Lungs: Present: Clear to auscultation Abdomen: Present: normal appearance, soft, normal bowel sounds. Absent: di stention, tenderness, guarding, rigidity Uterus: Present: normal, firm, fundal height below umbilicus. Absent: bogginess, tenderness Extremities: Present: normal. Absent: tenderness, edema Incision: Present: normal, dry (steri strips with small amount of dried serosanguinous drainage), intact
[2019-09-04 10:26] LABS: Hematocrit 29.7 % (30.3-42.9); Hemoglobin 10.2 gm/dl (10.1-14.3)
[2019-09-05] MEDS: HYDROcodone/ACETAMINOPHEN 5-325 MG TAB PO PRN (03:25)
[2019-09-05] MEDS: IBUPROFEN 800 MG TAB PO PRN (10:52)
--- NOTE | 2019-09-05 11:25 | Progress Note ---
Assessment and Plan A: POD #4 Hypertension Plan discharge in AM Home with Labetalol 100mg po bid Subjective - Subjective Date of service: 09/05/19 Principal diagnosis: day 4 S/P primary low transverse section Patient reports: appetite normal [place]: doing well Objective - Vital Signs Latest vital signs: Vital Signs Temp Pulse Resp BP BP Pulse Ox 09/05/19 08:29 98.2 F 83 20 148/86 95 09/05/19 04:00 98.6 F 61 16 136/71 09/05/19 00:00 98.8 F 70 18 131/72 Intake and Output 09/04/19 09/05/19 09/05/19 22:59 06:59 14:59 Intake Total 230 300 240 Balance 230 300 240 Intake: Oral 130 240 Intake, Free Water 100 300 Other: Total, Intake Amount 130 240 # Voids Indwelling Catheter 1 Void 1 1 1 - Exam Breasts: Present: deferred Cardiovascular: Present: Regular rate Lungs: Present: Clear to auscultation Abdomen: Present: soft Vulva: both: normal Uterus: Present: fundal height below umbilicus Deep Tendon Reflex Grade: Normal +2 Incision: Present: intact
--- NOTE | 2019-09-05 11:26 | Discharge Summary ---
Providers - Providers Date of Admission: 08/30/19 12:38 Date of discharge: 09/06/19 Attending physician: YO GILLESPIE Primary care physician: BRAKE MECHANIC Hospitalization Reason for admission: induction of labor Delivery: Procedure: section Incision: intact Other procedures: none Discharge diagnosis: IUP at term delivered [place] baby: female Condition at discharge: Good Disposition: DC-01 TO HOME OR SELFCARE Plan - Discharge Medications Prescriptions: Ibuprofen [Motrin] 600 mg PO Q8H PRN #30 tablet PRN Reason: Pain oxyCODONE /ACETAMINOPHEN [Percocet 5/325] 1 tab PO Q6HR PRN #20 tablet PRN Reason: Pain - Provider Discharge Summary Additional instructions: [] Smoking cessation referral if applicable(refer to patient education folder for contact #) [] Refer to [facility] Booklet Call your doctor immediately for: * Fever > 100.5 * Heavy vaginal bleeding ( >1 pad per hour) * Severe persistent headache * Shortness of breath * Reddened, hot, painful area to leg or breast * Drainage or odor from incision. * Keep incision clean and dry at all times and follow doctor's instructions regarding bathing/showering - Follow up plan Follow up: PRIMARY CARE, [Primary Care Provider] - 3-5 Days
[2019-09-06] MEDS: HYDROcodone/ACETAMINOPHEN 5-325 MG TAB PO PRN ×2 (00:18→18:57)
[2019-09-06] MEDS: IBUPROFEN 800 MG TAB PO PRN ×2 (09:10→23:55)
[2019-09-07] MEDS: HYDROcodone/ACETAMINOPHEN 5-325 MG TAB PO PRN (05:37)
[2019-09-07 09:52] VITALS: BP 136/88
== END 2019-09-07 11:30 | disposition home or self-care (01) | DRG 786 ==
LOC: ED 11:24 → OBSVTOIN 12:38 → LD 12:38 → OB 09-02 15:37
PROVIDERS: ADMIT Obstetrics & Gynecology; ATTEND Obstetrics & Gynecology
PROC: 10907ZC Drainage of Amniotic Fluid, Therapeutic from Products of Conception, Via Natural or Artificial Opening (ICD-10-PCS; 2019-08-31)
PROC: 0U7C7ZZ Dilation of Cervix, Via Natural or Artificial Opening (ICD-10-PCS; 2019-08-31)
PROC: 10D00Z1 Extraction of Products of Conception, Low, Open Approach (ICD-10-PCS; principal; 2019-09-01)
DX: O10.92 Unspecified pre-existing hypertension complicating childbirth (principal); O41.1230 Chorioamnionitis, third trimester, not applicable or unspecified; R60.0 Localized edema; O14.94 Unspecified pre-eclampsia, complicating childbirth; O75.89 Other specified complications of labor and delivery; O62.1 Secondary uterine inertia; R51 Headache; Z3A.37 37 weeks gestation of pregnancy; Z37.0 Single live birth; Z83.3 Family history of diabetes mellitus
CPT/HCPCS: 36415; 59200; 80053; 81001; 82550; 83735; 85014; 85018; 85025; 86850; 86900; 86901; 87086; 93005; 93010; 96374; G0378; J0290; J0360; J0595; J0690; J1170; J1200; J1580; J1885; J2210; J2405; J2590; J2765; J3475; J3490; J7120